=== PATIENT | female | born 1935 | race Caucasian/White ===

== ENCOUNTER → 2016-08-06 | Outpatient (CLI) | payer MEDICARE, BC ==
--- NOTE | 2016-08-07 10:14 | CR ---
EXAMINATION: Right shoulder HISTORY: Pain COMPARISON: None TECHNIQUE: 3 views FINDINGS: There is no acute osseous abnormality, dislocation, or fracture identified. Bone mineraliz ation and joint spaces appear normal. 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 IMPRESSION: No acute osseous abnormality.
== END ==
LOC: MW.CHORTHO 08:00
PROVIDERS: ATTEND Physician Assistant
DX: M25.511 Pain in right shoulder (principal); M75.41 Impingement syndrome of right shoulder
CPT/HCPCS: 20610; 73030-26-RT; 73030-RT; 99203; J1040

== ENCOUNTER → 2016-08-25 | Outpatient (CLI) | payer MEDICARE, BC | LOC: MW.CHPS 15:45 | PROVIDERS: ATTEND Plastic Surgery | DX: C44.311 Basal cell carcinoma of skin of nose (principal) | CPT/HCPCS: 17000; 99202 ==

== ENCOUNTER 2017-04-13 13:15 | Observation (INO) | payer MEDICARE, BC ==
[2017-04-13] MEDS ORDERED: Sodium Chloride 0.9% 2.5 ML Syringe FLUSH PRN ×2 (13:17→17:18)
[2017-04-13] MEDS ORDERED: Sodium Chloride 0.9% 10 ML Syringe FLUSH PRN ×2 (13:17→17:18)
--- NOTE | 2017-04-13 13:26 | EDM.PDOC ---
ED HPI GENERAL MEDICAL PROBLEM - General Chief Complaint: Cardiovascular Problem Stated Complaint: A-FIB Time Seen by Provider: 04/13/17 13:20 Source of Information: Reports: Patient History Limitations: Reports: No Limitations - History of Present Illness INITIAL COMMENTS - FREE TEXT/NARRATIVE: History of present illness: []Patient lives in [facility] at [place] and states that early this morning she started feeling her heart racing like she was in A. fib and it has been intermittent all day. Patient states her nurse gave her her meds and she has not missed any doses. She denies any chest pain or shortness of breath at this time and does not feel the symptoms on arrival to the ED. Review of systems: As per history of present illness and below otherwise all systems reviewed and negative. Past medical history: As per history of present illness and as reviewed below otherwise noncontributory. Surgical history: As per history of present illness and as reviewed below otherwise noncontributory. Social history: No reported history of drug or alcohol abuse. Family history: As per history of present illness and as reviewed below otherwise noncontributory. Physical exam: General: Well developed, well nourished in NAD HEENT: Atraumatic, normocephalic, pupils reactive, negative for conjunctival pallor or scleral icterus, mucous membranes moist, throat clear, neck supple, nontender, trachea midline. Lungs: Clear to auscultation, breath sounds equal bilaterally, chest nontender. Heart: S1S2, regular, negative for clicks, rubs, or JVD. Abdomen: Soft, nondistended, nontender. Negative for masses or hepatosplenomegaly. Negative for costovertebral tenderness. Pelvis: Stable nontender. Genitourinary: Deferred. Rectal: Deferred. Extremities: Atraumatic, negative for cords or calf pain. Neurovascular unremarkable. Neuro: Awake, alert, oriented. Cranial nerves II through XII unremarkable. Cerebellum unremarkable. Motor and sensory unremarkable throughout. Exam nonfocal. Diagnostics: []EKG shows a normal sinus rhythm, headache enzymes are negative, other labs are also negative chest x-ray normal Therapeutics: [] Impression: []Palpitations, history of paroxysmal A. 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 - Related Data Allergies Allergy/AdvReac Type Severity Reaction Status Date / Time codeine Allergy Nausea Verified 08/06/16 18:55 Home Meds: Home Meds Acetaminophen 1,000 mg PO Q6H PRN 02/04/16 [History] Aspirin 81 mg PO DAILY 02/04/16 [History] Carboxymethyl/Glycerin/Poly80 [Refresh Optive Advanced Drops] 1 drop EYEBOTH Q4H PRN 02/04/16 [History] Lisinopril 10 mg PO DAILY 02/04/16 [History] Multivitamin [Multivitamins] 1 tab PO DAILY 02/04/16 [History] Ranitidine HCl [Ranitidine] 150 mg PO BID 02/04/16 [History] atorvaSTATin [Lipitor] 40 mg PO DAILY 02/04/16 [History] Diltiazem [Cardizem CD] 120 mg PO DAILY #30 cap.cd 02/06/16 [Rx] Rivaroxaban [Xarelto] 20 mg PO DAILY 30 Days tablet 02/06/16 [Rx] Sertraline HCl 25 mg PO DAILY 08/06/16 [History] Acetaminophen/Chlorpheniramine [Coricidin HBP Cold & Flu] 2 tab PO Q6H PRN 08/07 [History] Dextromethorphn/Acetaminoph/CP [Coricidin HBP Flu] 2 tab PO Q6HR PRN 08/07/16 [ History] Erythromycin Base/Ethanol [Erythromycin 2% Gel] 1 applic EYEBOTH Q12H PRN [History] Past Medical History HEENT History: Reports: Impaired Vision Other HEENT History: Uses eyeglasses Cardiovascular History: Reports: Afib, Hypertension, Other (See Below) Other Cardiovascular History: Stroke 03/2014 Respiratory History: Reports: None Gastrointestinal History: Reports: Other (See Below) Other Gastrointestinal History: history of bowel resection for villous adenoma Genitourinary History: Reports: None 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 OB/BYN History: s/p hysterectomy Musculoskeletal History: Reports: Back Pain, Chronic Neurological History: Reports: CVA Other Neuro History: short term memory loss Psychiatric History: Reports: None Endocrine/Metabolic History: Reports: None Hematologic History: Reports: None Immunologic History: Reports: None Oncologic (Cancer) History: Reports: Other (See Below) Other Oncologic History: history of villous adenoma treated with endoscopic bowel resection Dermatologic History: Reports: None - Infectious Disease History Infectious Disease History: Reports: Chicken Pox, Measles, Mumps - Past Surgical History GI Surgical History: Reports: Other (See Below) Female Surgical History: Reports: Hysterectomy, Other (See Below) Male Surgical History: Reports: Other (See Below) Social & Family History - Family History Family Medical History: Noncontributory Cardiac: Reports: Hypertension OBGYN: Reports: Oncologic: Reports: Breast - Tobacco Use Smoking Status *Q: Never Smoker Second Hand Smoke Exposure: No - Caffeine Use Caffeine Use: Reports: Coffee, Other Other Caffeine Use: rarely - Alcohol Use Days Per Week of Alcohol Use: 0 - Recreational Drug Use Recreational Drug Use: No ED ROS GENERAL - Review of Systems Review Of Systems: See Below (See history of present illness) ED EXAM, GENERAL - Physical Exam Exam: See Below (See history of present illness) Course - Vital Signs Last Recorded V/S: Last Vital Signs Temp 35.9 C 04/13/17 13:37 Pulse 79 04/13/17 13:37 Resp 18 04/13/17 13:37 BP 129/62 04/13/17 13:37 Pulse Ox 98 04/13/17 13:37 - Orders/Labs/Meds Orders: Active Orders 24 hr Category Date Time Status EKG Documentation Completion [RC] STAT Care 04/13/17 13:17 Active Sodium Chloride 0.9% [Saline Flush] Med 04/13/17 13:17 Active 10 ml FLUSH ASDIRECTED PRN Sodium Chloride 0.9% [Saline Flush] Med 04/13/17 13:17 Active 2.5 ml FLUSH ASDIRECTED PRN Saline Lock Insert [OM.PC] Stat Oth 04/13/17 13:17 Ordered Medication Orders Sodium Chloride (Saline Flush) 10 ml FLUSH ASDIRECTED PRN PRN Reason: Keep Vein Open Sodium Chloride (Saline Flush) 2.5 ml FLUSH ASDIRECTED PRN PRN Reason: Keep Vein Open Labs: Laboratory Tests 04/13/17 04/13/17 Range/Units 13:32 13:32 WBC 10.29 (4.0-11.0) K/uL RBC 4.82 (4.30-5.90) M/uL Hgb 12.6 (12.0-16.0) g/dL Hct 39.5 (36.0-46.0) % MCV 82.0 (80.0-98.0) fL MCH 26.1 L (27.0-32.0) pg MCHC 31.9 (31.0-37.0) g/dL RDW Std Deviation 51.1 (28.0-62.0) fl RDW Coeff of Elle 17 H (11.0-15.0) % Plt Count 249 (150-400) K/uL MPV 10.20 (7.40-12.00) fL Neut % (Auto) 73.0 (48.0-80.0) % Lymph % (Auto) 16.5 (16.0-40.0) % Ford % (Auto) 8.9 (0.0-15.0) % Eos % (Auto) 1.2 (0.0-7.0) % Baso % (Auto) 0.4 (0.0-1.5) % Neut # (Auto) 7.5 H (1.4-5.7) K/uL Lymph # (Auto) 1.7 (0.6-2.4) K/uL Ford # (Auto) 0.9 H (0.0-0.8) K/uL Eos # (Auto) 0.1 (0.0-0.7) K/uL Baso # (Auto) 0.0 (0.0-0.1) K/uL Nucleated RBC % 0.0 /100WBC Nucleated RBCs # 0 K/uL Sodium 139 (136-146) mmol/L Potassium 4.0 (3.5-5.1) mmol/L Chloride 106 (98-110) mmol/L Carbon Dioxide 25 (21-31) mmol/L BUN 14 (6.0-23.0) mg/dL Creatinine 0.8 (0.6-1.5) mg/dL Est Cr Clr Drug Dosing TNP Estimated GFR (MDRD) > 60.0 ml/min Glucose 95 (60-110) mg/dL Calcium 9.7 (8.8-10.8) mg/dL Total Bilirubin 0.2 (0.1-1.5) mg/dL AST 19 (5-40) IU/L ALT 18 (8-54) IU/L Alkaline Phosphatase 48 (40-150) Troponin I < 0.10 (0.0-0.29) NG/ML Total Protein 7.1 (6.0-8.0) g/dL Albumin 3.8 (3.4-4.8) g/dL Globulin 3.3 (2.0-3.5) g/dL Albumin/Globulin Ratio 1.2 L (1.3-2.8) TSH 3rd Generation 0.98 (0.47-5.0) uIU/mL Meds: Medications Generic Name Dose Route Start Last Admin Trade Name Freq PRN Reason Stop Dose Admin Sodium Chloride 10 ml 04/13/17 13:17 Saline Flush FLUSH ASDIRECTED PRN Keep Vein Open Sodium Chloride 2.5 ml 04/13/17 13:17 Saline Flush FLUSH ASDIRECTED PRN Keep Vein Open Departure - Departure Time of Disposition: 14:36 Disposition: Home, Self-Care 01 Condition: Good Clinical Impression: Palpitations Referrals: Phu Mullins MD [Primary Care Provider] - Forms: ED Department Discharge Additional Instructions: The following information is given to patients seen in the emergency department who are being discharged to home. This information is to outline your options for follow-up care. We provide all patients seen in our emergency department with a follow-up referral. The need for follow-up, as well as the timing and circumstances, are variable depending upon the specifics of your emergency department visit. If you don't have a primary care physician on staff, we will provide you with a referral. We always advise you to contact your personal physician following an emergency department visit to inform them of the circumstance of the visit and for follow-up with them and/or the need for any referrals to a consulting specialist. The emergency department will also refer you to a specialist when appropriate. This referral assures that you have the opportunity for follow-up care with a specialist. All of these measure are taken in an effort to provide you with optimal care, which includes your follow-up. Under all circumstances we always encourage you to contact your private physician who remains a resource for coordinating your care. When calling for follow-up care, please make the office aware that this follow-up is from your recent emergency room visit. If for any reason you are refused follow-up, please contact the [facility] Emergency Department at and asked to speak to the emergency department charge nurse. Continue regular medicines, follow up with your primary care physician and/or return to ER if symptoms worsen or change [facility] [address] [place] [id number] - My Orders Last 24 Hours: My Active Orders 04/13/17 13:17 EKG Documentation Completion [RC] STAT Sodium Chloride 0.9% [Saline Flush] 10 ml FLUSH ASDIRECTED PRN Sodium Chloride 0.9% [Saline Flush] 2.5 ml FLUSH ASDIRECTED PRN Saline Lock Insert [OM.PC] Stat - Assessment/Plan Last 24 Hours: My Active Orders 04/13/17 13:17 EKG Documentation Completion [RC] STAT Sodium Chloride 0.9% [Saline Flush] 10 ml FLUSH ASDIRECTED PRN Sodium Chloride 0.9% [Saline Flush] 2.5 ml FLUSH ASDIRECTED PRN Saline Lock Insert [OM.PC] Stat
[2017-04-13 13:59] LABS: CHLORIDE,CL 106 mmol/L (98-110); SODIUM,NA 139 mmol/L (136-146)
--- NOTE | 2017-04-13 14:12 | CR ---
EXAMINATION: Portable chest radiograph. HISTORY: Shortness of breath. COMPARISON: 08/06/2016 FINDINGS: The trachea is midline. The cardiomediastinal silhouette is within normal limits. No pulmonary infilt rates, effusions or pneumothorax. Osseous structures appear unremarkable. IMPRESSION: Stable chest radiograph without definite acute cardiopulmonary finding.
[2017-04-13] MEDS ORDERED: Pneumococcal Polyvalent-23 Vaccine 0.5 ML SDV IM ONE (16:08)
[2017-04-13] MEDS ORDERED: Morphine 2 MG/ML Syringe IVPUSH PRN (17:18)
[2017-04-13] MEDS ORDERED: [UNRECOGNIZED DRUG - OTHER] PO PRN (17:22)
[2017-04-13] MEDS ORDERED: CHLORPHENIRAMINE PO PRN (17:22)
[2017-04-13] MEDS ORDERED: [UNRECOGNIZED DRUG - OTHER] PO PRN (17:22)
[2017-04-13] MEDS ORDERED: Acetaminophen 500 MG Tab PO PRN (17:22)
[2017-04-13] MEDS ORDERED: Erythromycin Base 0.5% Ophth Oint 1 GM Tube EYEBOTH PRN (17:22)
[2017-04-13] MEDS ORDERED: ACETAMINOPHEN PO PRN (17:22)
[2017-04-13] MEDS ORDERED: Carboxymethylcellulose Sodium 0.5% Ophth Soln 0.4 ML UD Box of 30 EYEBOTH PRN (17:22)
[2017-04-13] MEDS ORDERED: Aluminum Hydroxide/Magnesium Hydroxide/Simethicone Susp 30 ML Cup PO PRN (17:50)
--- NOTE | 2017-04-13 18:06 | PCM.HP ---
H&P History of Present Illness - General Date of Service: 04/13/17 Source of Information: Patient - History of Present Illness Initial Comments - Free Text/Narative: Patient 82 years old female with PMHx of atrial fibrillation presented to hospital today because while sitting in the chair she has 3-4 episodes of lightheadedness and chest tightness 4/10 intensity , localized in the middle of the chest. The nurse checked her pulse and was in 160 and her heart beats were irregular. Chest tightness lasted for about 10 min and she did not have any episodes sice she came to Er Onset of Symptoms: Reports: Today - Related Data Allergies/Adverse Reactions: Allergies Allergy/AdvReac Type Severity Reaction Status Date / Time codeine Allergy Nausea Verified 04/13/17 16:17 Home Medications: Home Meds Acetaminophen 1,000 mg PO Q6H PRN 02/04/16 [History] Aspirin 81 mg PO DAILY 02/04/16 [History] Carboxymethyl/Glycerin/Poly80 [Refresh Optive Advanced Drops] 1 drop EYEBOTH Q4H PRN 02/04/16 [History] Lisinopril 10 mg PO DAILY 02/04/16 [History] Multivitamin [Multivitamins] 1 tab PO DAILY 02/04/16 [History] Ranitidine HCl [Ranitidine] 150 mg PO BID 02/04/16 [History] atorvaSTATin [Lipitor] 40 mg PO DAILY 02/04/16 [History] Rivaroxaban [Xarelto] 20 mg PO DAILY 30 Days tablet 02/06/16 [Rx] Sertraline HCl 25 mg PO DAILY 08/06/16 [History] Acetaminophen/Chlorpheniramine [Coricidin HBP Cold & Flu] 2 tab PO Q6H PRN 08/07 [History] Dextromethorphn/Acetaminoph/CP [Coricidin HBP Flu] 2 tab PO Q6HR PRN 08/07/16 [ History] Erythromycin Base/Ethanol [Erythromycin 2% Gel] 1 applic EYEBOTH Q12H PRN [History] Diltiazem HCl [Diltiazem 24Hr Cd] 180 mg PO DAILY 04/13/17 [History] Past Medical History - Past Health History Medical/Surgical History: Denies Medical/Surgical History HEENT History: Reports: Impaired Vision Other HEENT History: Uses eyeglasses Cardiovascular History: Reports: Afib, Hypertension, Other (See Below) Other Cardiovascular History: Stroke 03/2014 Respiratory History: Reports: None Gastrointestinal History: Reports: Other (See Below) Other Gastrointestinal History: history of bowel resection for villous adenoma Genitourinary History: Reports: None 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 OB/BYN History: s/p hysterectomy Musculoskeletal History: Reports: Back Pain, Chronic Neurological History: Reports: CVA Other Neuro History: short term memory loss Psychiatric History: Reports: None Endocrine/Metabolic History: Reports: None Hematologic History: Reports: None Immunologic History: Reports: None Oncologic (Cancer) History: Reports: Other (See Below) Other Oncologic History: history of villous adenoma treated with endoscopic bowel resection Dermatologic History: Reports: None - Infectious Disease History Infectious Disease History: Reports: Chicken Pox, Measles, Mumps - Past Surgical History Head Surgeries/Procedures: Reports: None GI Surgical History: Reports: Other (See Below) Female Surgical History: Reports: Hysterectomy, Other (See Below) Social & Family History - Family History Family Medical History: Noncontributory Cardiac: Reports: Hypertension OBGYN: Reports: Oncologic: Reports: Breast - Tobacco Use Smoking Status *Q: Former Smoker Used Tobacco, but Quit: Yes Month Tobacco Last Used: quit many years ago Second Hand Smoke Exposure: No - Caffeine Use Caffeine Use: Reports: Coffee Other Caffeine Use: rarely - Alcohol Use Days Per Week of Alcohol Use: 0 - Recreational Drug Use Recreational Drug Use: No H&P Review of Systems - Review of Systems: Review Of Systems: See Below General: Reports: Diaphoresis HEENT: Reports: No Symptoms Pulmonary: Reports: No Symptoms Cardiovascular: Reports: Chest Pain, Lightheadedness Gastrointestinal: Reports: No Symptoms Genitourinary: Reports: No Symptoms Musculoskeletal: Reports: No Symptoms Skin: Reports: No Symptoms Psychiatric: Reports: No Symptoms Neurological: Reports: No Symptoms Hematologic/Lymphatic: Reports: No Symptoms Immunologic: Reports: No Symptoms Exam - Exam Exam: See Below - Vital Signs Vital Signs: Last Vital Signs Temp 97.8 F 04/13/17 16:01 Pulse 83 04/13/17 16:01 Resp 16 04/13/17 16:01 BP 151/68 H 04/13/17 16:01 Pulse Ox 96 04/13/17 16:01 Weight: 198 lb - Exam General: Alert, Oriented HEENT: Conjunctiva Clear Neck: Supple, Trachea Midline Lungs: Clear to Auscultation, Normal Respiratory Effort Cardiovascular: Regular Rate, Regular Rhythm, Normal S1, Normal S2 GI/Abdominal Exam: Normal Bowel Sounds, Soft, Non-Tender, No Organomegaly, No Distention, No Abnormal Bruit Extremities: Normal Inspection Skin: Warm, Dry Neuro Extensive - Mental Status: Alert, Oriented x3 - Patient Data Result Diagrams: 04/13/17 13:32 04/13/17 13:32 EKG INTERPRETATION EKG Date: 04/13/17 Rhythm: NSR *Q Meaningful Use (ADM) - VTE *Q VTE Criteria *Q: - Stroke *Q Stroke Criteria *Q: - AMI *Q AMI Criteria *Q: - Problem List (1) Chest pain SNOMED Code(s): 54369164 ICD Code: R07.9 - CHEST PAIN, UNSPECIFIED Status: Acute Current Visit: Yes (2) Lightheadedness SNOMED Code(s): 722303175 ICD Code: R42 - DIZZINESS AND GIDDINESS Status: Acute Current Visit: Yes (3) Arrhythmia SNOMED Code(s): 542394764 ICD Code: I49.9 - CARDIAC ARRHYTHMIA, UNSPECIFIED Status: Acute Current Visit: Yes (4) Hyperlipidemia SNOMED Code(s): 82744895 ICD Code: E78.5 - HYPERLIPIDEMIA, UNSPECIFIED Status: Acute Current Visit : Yes Problem List Initiated/Reviewed/Updated: Yes Orders Last 24hrs: Active Orders 24 hr Category Date Time Status Patient Status [ADT] Routine ADT 04/13/17 17:19 Active Antiembolic Devices [RC] PER UNIT ROUTINE Care 04/13/17 17:21 Active Bedrest Bathroom Privileges [RC] ASDIRECTED Care 04/13/17 17:18 Active Telemetry Monitoring [Cardiac Monitoring] [RC] . Care 04/13/17 17:40 Active DIRECTED VTE/DVT Education [RC] PER UNIT ROUTINE Care 04/13/17 17:19 Active Vital Signs [RC] Q4H Care 04/13/17 17:19 Active 2 Gram Sodium Diet [DIET] Diet 04/13/17 Dinner Active CBC W/O DIFF,HEMOGRAM [HEME] AM Lab 04/14/17 05:11 Ordered CBC W/O DIFF,HEMOGRAM [HEME] AM Lab 04/15/17 05:11 Ordered CBC W/O DIFF,HEMOGRAM [HEME] AM Lab 04/16/17 05:11 Ordered CBC W/O DIFF,HEMOGRAM [HEME] AM Lab 04/17/17 05:11 Ordered COMPREHENSIVE METABOLIC PN,CMP [CHEM] AM Lab 04/14/17 05:11 Ordered COMPREHENSIVE METABOLIC PN,CMP [CHEM] AM Lab 04/15/17 05:11 Ordered COMPREHENSIVE METABOLIC PN,CMP [CHEM] AM Lab 04/16/17 05:11 Ordered COMPREHENSIVE METABOLIC PN,CMP [CHEM] AM Lab 04/17/17 05:11 Ordered TROPONIN I [CHEM] Q6H Lab 04/13/17 22:00 Ordered TROPONIN I [CHEM] Q6H Lab 04/14/17 04:00 Ordered Acetaminophen [Tylenol Extra Strength] Med 04/13/17 17:22 Active 1,000 mg PO Q6H PRN Alum Hydrox/Mag Hydrox/Simeth [Mag-Al Plus] Med 04/13/17 17:50 Active 30 ml PO Q4H PRN Aspirin Med 04/14/17 09:00 Active 81 mg PO DAILY Carboxymethylcellulose Sodium [Refresh Plus 0.5%] Med 04/13/17 17:22 Active 1 each EYEBOTH Q4H PRN Diltiazem [Cardizem CD] Med 04/14/17 09:00 Active 180 mg PO DAILY Erythromycin Base [Erythromycin 0.5% Ophth Oint] Med 04/13/17 17:22 Active 1 gm EYEBOTH Q12H PRN Famotidine [Pepcid] Med 04/13/17 21:00 Active 20 mg PO BID Heparin Sodium Med 04/13/17 21:00 Active 5,000 units SUBCUT Q12HR Lisinopril [Prinivil] Med 04/14/17 09:00 Active 10 mg PO DAILY Morphine Med 04/13/17 17:18 Active 2 mg IVPUSH Q2H PRN Multivitamins w-Iron/Ca/FA/Min [Thera M Plus] Med 04/14/17 09:00 Active 1 tab PO DAILY Rivaroxaban [Xarelto] Med 04/14/17 09:00 Active 20 mg PO DAILY Sertraline [Zoloft] Med 04/14/17 09:00 Active 25 mg PO DAILY Sodium Chloride 0.9% [Saline Flush] Med 04/13/17 17:18 Active 10 ml FLUSH ASDIRECTED PRN Sodium Chloride 0.9% [Saline Flush] Med 04/13/17 17:18 Active 2.5 ml FLUSH ASDIRECTED PRN atorvaSTATin [Lipitor] Med 04/14/17 09:00 Active 40 mg PO DAILY Peripheral IV Insertion Adult [OM.PC] Routine Oth 04/13/17 17:18 Ordered Sequential Compression Device [OM.PC] Per Unit Routine Oth 04/13/17 17:20 Ordered Code Status [Resuscitation Status] Routine Resus Stat 04/13/17 17:38 Ordered Medication Orders Acetaminophen (Tylenol Extra Strength) 1,000 mg PO Q6H PRN PRN Reason: Pain Al Hydroxide/Mg Hydroxide (Mag-Al Plus) 30 ml PO Q4H PRN PRN Reason: Heartburn Artificial Tears (Refresh Plus 0.5%) 1 each EYEBOTH Q4H PRN PRN Reason: Dry Eyes Aspirin (Aspirin) 81 mg PO DAILY [facility] Atorvastatin Calcium (Lipitor) 40 mg PO DAILY [facility] Diltiazem HCl (Cardizem Cd) 180 mg PO DAILY [facility] Erythromycin (Erythromycin 0.5% Ophth Oint) 1 gm EYEBOTH Q12H PRN PRN Reason: Dry Eyes Famotidine (Pepcid) 20 mg PO BID [facility] Heparin Sodium (Porcine) (Heparin Sodium) 5,000 units SUBCUT Q12HR [facility] Lisinopril (Prinivil) 10 mg PO DAILY [facility] Morphine Sulfate (Morphine) 2 mg IVPUSH Q2H PRN PRN Reason: Pain (severe 7-10) Multivitamins/Minerals (Thera M Plus) 1 tab PO DAILY [facility] Rivaroxaban (Xarelto) 20 mg PO DAILY [facility] Sertraline HCl (Zoloft) 25 mg PO DAILY [facility] Sodium Chloride (Saline Flush) 10 ml FLUSH ASDIRECTED PRN PRN Reason: Keep Vein Open Sodium Chloride (Saline Flush) 2.5 ml FLUSH ASDIRECTED PRN PRN Reason: Keep Vein Open Sodium Chloride (Saline Flush) 10 ml FLUSH ASDIRECTED PRN PRN Reason: Keep Vein Open Sodium Chloride (Saline Flush) 2.5 ml FLUSH ASDIRECTED PRN PRN Reason: Keep Vein Open Assessment/Plan Comment:: A/p CP r/o acs arrhythmia HLP lightheadedness Paroxysmal a fib HLP Plan Will admit patient to telemetry , cardiac enzymes times 3 , aspirin 325 mg po daily , lipid profile in am , cardiac echo , carotid doppler , orthostatic Vs. 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 Cardiazem 180 mg po daily , atorvastatin as per reconciliation
[2017-04-13] MEDS: Famotidine 20 MG Tab PO SCH (20:53)
[2017-04-13] MEDS ORDERED: Heparin Sodium 5,000 Units/ML Vial SUBCUT SCH (21:00)
[2017-04-14 04:25] LABS: CHLORIDE,CL 109 mmol/L (98-110); SODIUM,NA 141 mmol/L (136-146)
[2017-04-14 08:49] VITALS: BP 138/54
[2017-04-14] MEDS: Famotidine 20 MG Tab PO SCH (08:49)
[2017-04-14] MEDS ORDERED: Aspirin 81 MG Tab.Chew PO SCH (09:00)
[2017-04-14] MEDS ORDERED: Lisinopril 10 MG Tab PO SCH (09:00)
[2017-04-14] MEDS ORDERED: Rivaroxaban 10 MG Tab PO SCH (09:00)
[2017-04-14] MEDS ORDERED: Diltiazem 180 MG Cap.CD PO SCH (09:00)
[2017-04-14] MEDS ORDERED: Sertraline 25 MG Tab PO SCH (09:00)
[2017-04-14] MEDS ORDERED: Multivitamins with Iron/Calcium/Folic Acid/Minerals Tab PO SCH (09:00)
[2017-04-14] MEDS ORDERED: atorvaSTATin 40 MG Tab PO SCH (09:00)
--- NOTE | 2017-04-14 09:14 | PCM.DCSUM1 ---
Discharge Summary - Hospital Course Brief History: This 82 year old female and [facility] resident with pmh of atrial fibrillation, CVA, HTN, dyslipidemia, anxiety and depression presented to hospital yesterdaywith complaints of chest tightness, palpitations, and lightheadedness. She reports while sitting in a chair she had 3-4 episodes of lightheadedness and chest tightness 4/10 intensity, localized in the middle of the chest. The [facility] nurse checked her pulse and noted it wsa 160 and irregular. Chest tightness lasted for about 10 min and she did not have any episodes sice she came to ED. In the ED labwork all WNL, troponin negative. EKG SR, no afib noted. She was admitted for chest pain rule out and lightheadedness. PCP Dr. Mullins. - Discharge Data Discharge Date: 04/14/17 Discharge Disposition: DC/Tfer to [facility] Condition: Good - Discharge Diagnosis/Problem(s) (1) Chest pain SNOMED Code(s): 61631783 ICD Code: R07.9 - CHEST PAIN, UNSPECIFIED Status: Acute Current Visit: Yes Qualifiers: Chest pain type: other chest pain Qualified Code(s): R07.89 - Other chest pain; R07.8 - Other chest pain (2) Lightheadedness SNOMED Code(s): 524345180 ICD Code: R42 - DIZZINESS AND GIDDINESS Status: Acute Current Visit: Yes (3) Palpitations SNOMED Code(s): 54733259 ICD Code: R00.2 - PALPITATIONS Status: Acute Current Visit: Yes (4) History of CVA (cerebrovascular accident) SNOMED Code(s): 328242647 ICD Code: Z86.73 - PRSNL HX OF TIA (TIA), AND CEREB INFRC W/O RESID DEFICITS Status: Chronic Current Visit: Yes (5) Anxiety SNOMED Code(s): 85697438 ICD Code: F41.9 - ANXIETY DISORDER, UNSPECIFIED Status: Chronic Current Visit: Yes (6) HTN (hypertension) SNOMED Code(s): 72736908 ICD Code: I10 - ESSENTIAL (PRIMARY) HYPERTENSION Status: Chronic Current Visit: Yes Qualifiers: Hypertension type: essential hypertension Qualified Code(s): I10 - Essential (primary) hypertension (7) Chronic anticoagulation SNOMED Code(s): 787186356 ICD Code: Z79.01 - SNF (CURRENT) USE OF ANTICOAGULANTS Status: Chronic Current Visit: Yes (8) Hyperlipidemia SNOMED Code(s): 06317924 ICD Code: E78.5 - HYPERLIPIDEMIA, UNSPECIFIED Status: Chronic Current Visit: Yes (9) Atrial fibrillation SNOMED Code(s): 33106063 ICD Code: I48.91 - UNSPECIFIED ATRIAL FIBRILLATION Status: Chronic Current Visit: No Qualifiers: Atrial fibrillation type: paroxysmal Qualified Code(s): I48.0 - Paroxysmal atrial fibrillation - Patient Instructions Diet: Heart Healthy Diet Activity: As Tolerated Showering/Bathing: May Shower Notify Provider of: Fever, Increased Pain, Swelling and Redness, Drainage, Nausea and/or Vomiting - Discharge Plan Home Medications: Home Meds Acetaminophen 1,000 mg PO Q6H PRN 02/04/16 [History] Aspirin 81 mg PO DAILY 02/04/16 [History] Carboxymethyl/Glycerin/Poly80 [Refresh Optive Advanced Drops] 1 drop EYEBOTH Q4H PRN 02/04/16 [History] Lisinopril 10 mg PO DAILY 02/04/16 [History] Multivitamin [Multivitamins] 1 tab PO DAILY 02/04/16 [History] Ranitidine HCl [Ranitidine] 150 mg PO BID 02/04/16 [History] atorvaSTATin [Lipitor] 40 mg PO DAILY 02/04/16 [History] Rivaroxaban [Xarelto] 20 mg PO DAILY 30 Days tablet 02/06/16 [Rx] Sertraline HCl 25 mg PO DAILY 08/06/16 [History] Acetaminophen/Chlorpheniramine [Coricidin HBP Cold & Flu] 2 tab PO Q6H PRN 08/07 [History] Dextromethorphn/Acetaminoph/CP [Coricidin HBP Flu] 2 tab PO Q6HR PRN 08/07/16 [ History] Erythromycin Base/Ethanol [Erythromycin 2% Gel] 1 applic EYEBOTH Q12H PRN [History] Diltiazem HCl [Diltiazem 24Hr Cd] 180 mg PO DAILY 04/13/17 [History] Patient Handouts: Chest Pain Observation Referrals: Phu Mullins MD [Primary Care Provider] - 04/21/17 10:15 am (follow in 1 week on next elio rounds) - Discharge Summary/Plan Comment DC Time >30 min.: No Discharge Summary/Plan Comment: Admission Diagnoses: Chest pain, r/o ACS Lightheadedness Palpitations Hx of CVA HTN Afib on chronic anticoagulation Anxiety Depression Discharge Diagnoses Chest pain- resolved, ACS ruled out Hx of CVA HTN Afib on chronic anticoagulation Anxiety Depression Nikky was admitted and monitored overnight, no afib noted and no further feelings of lightheadedness. She has slight lightheadedness upon getting up to bathroom, Orthostatics WNL. supine 137/64, sitting 147/59, and standing 134/63. Reports this lightheadedness happens sometimes when getting up, educated to take position changes slowly. No lightheadedness at rest. No further palpitations or chest pain. All troponins negative. Telemetry remained SR during her stay. She is very eager to be discharged back to [facility] this morning. She had ECHO and Carotid US ordered and are pending at discharge. She can follow with PCP regarding these results. She is to follow up with Dr. Phu Mullins in 1 week. She was encouraged to return to ED or clinic if concerns were to arise. - General Info Date of Service: 04/14/17 Admission Dx/Problem (Free Text: chest pain Subjective Update: Doing well this morning, asking to be discharged back to [place], "I am feeling fine now and I am exhausted. You can't get any sleep here." She denies chest pain and SOB. No lightheadedness at rest. Functional Status: Reports: Pain Controlled, Tolerating Diet, Ambulating, Urinating - Review of Systems General: Reports: No Symptoms. Denies: Fever Pulmonary: Reports: No Symptoms. Denies: Shortness of Breath, Cough, Sputum Cardiovascular: Reports: No Symptoms. Denies: Chest Pain, Palpitations, Edema, Lightheadedness Gastrointestinal: Reports: No Symptoms. Denies: Abdominal Pain, Nausea, Vomiting Neurological: Reports: No Symptoms. Denies: Confusion - Patient Data Vitals - Most Recent: Last Vital Signs Temp 97.1 F 04/14/17 08:00 Pulse 68 04/14/17 08:00 Resp 16 04/14/17 08:00 BP 138/54 L 04/14/17 08:49 Pulse Ox 95 04/14/17 08:00 Orthostatic Blood Pressure [ 134/63 Standing] Orthostatic Blood Pressure [ 147/59 Sitting] Orthostatic Blood Pressure [ 137/64 Supine] Weight - Most Recent: 89.811 kg I&O - Last 24 hours: Intake & Output 04/13/17 04/14/17 04/14/17 22:59 06:59 14:59 Intake Total 0 150 Output Total 100 525 Balance -100 -375 Lab Results - Last 24 hrs: Laboratory Results - last 24 hr 04/13/17 04/14/17 04/14/17 Range/Units 21:50 03:54 03:54 WBC 8.58 (4.0-11.0) K/uL RBC 4.35 (4.30-5.90) M/uL Hgb 11.1 L (12.0-16.0) g/dL Hct 35.3 L (36.0-46.0) % MCV 81.1 (80.0-98.0) fL MCH 25.5 L (27.0-32.0) pg MCHC 31.4 (31.0-37.0) g/dL RDW Std Deviation 50.9 (28.0-62.0) fl RDW Coeff of Elle 17 H (11.0-15.0) % Plt Count 219 (150-400) K/uL MPV 10.00 (7.40-12.00) fL Nucleated RBC % 0.0 /100WBC Nucleated RBCs # 0 K/uL Sodium 141 (136-146) mmol/L Potassium 4.1 (3.5-5.1) mmol/L Chloride 109 (98-110) mmol/L Carbon Dioxide 24 (21-31) mmol/L BUN 20 (6.0-23.0) mg/dL Creatinine 0.7 (0.6-1.5) mg/dL Est Cr Clr Drug Dosing 51.66 mL/min Estimated GFR (MDRD) > 60.0 ml/min Glucose 92 (60-110) mg/dL Calcium 9.1 (8.8-10.8) mg/dL Total Bilirubin 0.3 (0.1-1.5) mg/dL AST 16 (5-40) IU/L ALT 15 (8-54) IU/L Alkaline Phosphatase 40 (40-150) Troponin I < 0.10 (0.0-0.29) NG/ML Total Protein 5.9 L (6.0-8.0) g/dL Albumin 3.4 (3.4-4.8) g/dL Globulin 2.5 (2.0-3.5) g/dL Albumin/Globulin Ratio 1.4 (1.3-2.8) Triglycerides (10-190) mg/dL Cholesterol (131-240) mg/dL LDL Cholesterol, Calc (60-180) mg/dL VLDL Cholesterol (5-55) mg/dL HDL Cholesterol (40-80) mg/dL Cholesterol/HDL Ratio (3.3-6.0) 04/14/17 04/14/17 Range/Units 03:54 03:54 WBC (4.0-11.0) K/uL RBC (4.30-5.90) M/uL Hgb (12.0-16.0) g/dL Hct (36.0-46.0) % MCV (80.0-98.0) fL MCH (27.0-32.0) pg MCHC (31.0-37.0) g/dL RDW Std Deviation (28.0-62.0) fl RDW Coeff of Elle (11.0-15.0) % Plt Count (150-400) K/uL MPV (7.40-12.00) fL Nucleated RBC % /100WBC Nucleated RBCs # K/uL Sodium (136-146) mmol/L Potassium (3.5-5.1) mmol/L Chloride (98-110) mmol/L Carbon Dioxide (21-31) mmol/L BUN (6.0-23.0) mg/dL Creatinine (0.6-1.5) mg/dL Est Cr Clr Drug Dosing mL/min Estimated GFR (MDRD) ml/min Glucose (60-110) mg/dL Calcium (8.8-10.8) mg/dL Total Bilirubin (0.1-1.5) mg/dL AST (5-40) IU/L ALT (8-54) IU/L Alkaline Phosphatase (40-150) Troponin I < 0.10 (0.0-0.29) NG/ML Total Protein (6.0-8.0) g/dL Albumin (3.4-4.8) g/dL Globulin (2.0-3.5) g/dL Albumin/Globulin Ratio (1.3-2.8) Triglycerides 59 (10-190) mg/dL Cholesterol 176 (131-240) mg/dL LDL Cholesterol, Calc 97 (60-180) mg/dL VLDL Cholesterol 12 (5-55) mg/dL HDL Cholesterol 67 (40-80) mg/dL Cholesterol/HDL Ratio 2.6 L (3.3-6.0) Med Orders - Current: Current Medications Acetaminophen (Tylenol Extra Strength) 1,000 mg PO Q6H PRN PRN Reason: Pain Last Admin: 04/14/17 03:51 Dose: 1,000 mg Artificial Tears (Refresh Plus 0.5%) 1 each EYEBOTH Q4H PRN PRN Reason: Dry Eyes Aspirin (Aspirin) 81 mg PO DAILY [facility] Last Admin: 04/14/17 08:49 Dose: 81 mg Atorvastatin Calcium (Lipitor) 40 mg PO DAILY [facility] Last Admin: 04/14/17 08:49 Dose: 40 mg Diltiazem HCl (Cardizem Cd) 180 mg PO DAILY [facility] Last Admin: 04/14/17 08:50 Dose: 180 mg Erythromycin (Erythromycin 0.5% Ophth Oint) 1 gm EYEBOTH Q12H PRN PRN Reason: Dry Eyes Famotidine (Pepcid) 20 mg PO BID [facility] Last Admin: 04/14/17 08:49 Dose: 20 mg Lisinopril (Prinivil) 10 mg PO DAILY [facility] Last Admin: 04/14/17 08:49 Dose: 10 mg Morphine Sulfate (Morphine) 2 mg IVPUSH Q2H PRN PRN Reason: Pain (severe 7-10) Multivitamins/Minerals (Thera M Plus) 1 tab PO DAILY [facility] Last Admin: 04/14/17 08:49 Dose: 1 tab Rivaroxaban (Xarelto) 20 mg PO DAILY [facility] Last Admin: 04/14/17 08:49 Dose: 20 mg Sertraline HCl (Zoloft) 25 mg PO DAILY [facility] Last Admin: 04/14/17 08:49 Dose: 25 mg Sodium Chloride (Saline Flush) 10 ml FLUSH ASDIRECTED PRN PRN Reason: Keep Vein Open Sodium Chloride (Saline Flush) 2.5 ml FLUSH ASDIRECTED PRN PRN Reason: Keep Vein Open Sodium Chloride (Saline Flush) 10 ml FLUSH ASDIRECTED PRN PRN Reason: Keep Vein Open Sodium Chloride (Saline Flush) 2.5 ml FLUSH ASDIRECTED PRN PRN Reason: Keep Vein Open Discontinued Medications Al Hydroxide/Mg Hydroxide (Mag-Al Plus) 30 ml PO Q4H PRN PRN Reason: Heartburn Heparin Sodium (Porcine) (Heparin Sodium) 5,000 units SUBCUT Q12HR [facility] Pneumococcal Polyvalent Vaccine (Pneumovax 23) 0.5 ml IM .ONCE ONE Stop: 04/13/17 16:09 Last Admin: 04/13/17 16:42 Dose: Not Given - Exam General: Reports: Alert, Oriented, Cooperative, No Acute Distress Lungs: Reports: Clear to Auscultation, Normal Respiratory Effort Cardiovascular: Reports: Regular Rate, Regular Rhythm GI/Abdominal Exam: Normal Bowel Sounds, Soft, Non-Tender, No Organomegaly, No Distention, No Abnormal Bruit, No Mass, Pelvis Stable Extremities: Normal Inspection, Normal Range of Motion, Non-Tender, No Pedal Edema, Normal Capillary Refill Neurological: Reports: No New Focal Deficit Psy/Mental Status: Reports: Alert, Normal Affect, Normal Mood *Q Meaningful Use (DIS) - VTE *Q VTE Criteria *Q: - Stroke *Q Stroke Criteria *Q: - AMI *Q AMI Criteria *Q:
--- NOTE | 2017-04-14 11:49 | US ---
EXAMINATION: Carotid US with barahona scale and duplex imaging. HISTORY: Syncope FINDINGS: Ultrasound examination of bilateral cervical carotid arteries was performed using barahona scale and dupl ex imaging. Minimal scattered atheromatous changes noted without significant narrowing on grayscale imaging. Antegrade flow noted within the vertebrals. These are the peak velocities in cm per second (systole), right and left respectively, by a comma: CCA (common carotid artery) - 80, 103 ICA (internal carotid artery) - 84, 100 ECA (External carotid artery) - 69, 63 ICA/CCA systolic ratio Right - 1.1 Left - 1.1 IMPRESSION: No significant narrowing more elevated velocities noted within the carotid arteries bilaterally.
--- NOTE | 2017-04-16 17:20 | ECHO ---
The echocardiogram report can be see in this patient's EMR (electronic medical record) in the Report section. This report has also been scanned into PACS and can be see there. DANNIELLE
== END 2017-04-14 11:15 ==
LOC: MW.ED 13:15 → MW.MS 15:23
PROVIDERS: ADMIT Internal Medicine; ATTEND Internal Medicine
DX: I48.91 Unspecified atrial fibrillation (principal); R42 Dizziness and giddiness; R07.89 Other chest pain; I10 Essential (primary) hypertension; E78.5 Hyperlipidemia, unspecified; F41.9 Anxiety disorder, unspecified; F32.9 Major depressive disorder, single episode, unspecified; Z86.73 Personal history of transient ischemic attack (TIA), and cerebral infarction without residual deficits; Z79.01 Long term (current) use of anticoagulants; Z79.82 Long term (current) use of aspirin; Z79.899 Other long term (current) drug therapy; Z88.5 Allergy status to narcotic agent; Z90.49 Acquired absence of other specified parts of digestive tract; Z90.710 Acquired absence of both cervix and uterus; Z87.891 Personal history of nicotine dependence; Z85.3 Personal history of malignant neoplasm of breast
CPT/HCPCS: 36415; 71010; 80053; 80061; 84443; 84484; 85025; 85027; 93005; 93306; 93880; 99285; A9270; G0378

== ENCOUNTER 2017-07-31 10:45 | Observation (INO) | payer MEDICARE, BC ==
[2017-07-31] MEDS ORDERED: Sodium Chloride 0.9% 2.5 ML Syringe FLUSH PRN (10:50)
[2017-07-31] MEDS ORDERED: Sodium Chloride 0.9% 10 ML Syringe FLUSH PRN (10:50)
[2017-07-31] MEDS ORDERED: Aspirin 81 MG Tab.Chew PO ONE (10:50)
[2017-07-31] MEDS ORDERED: Albuterol/Ipratropium 3.0-0.5 MG/3 ML Neb Soln NEB ONE (10:53)
--- NOTE | 2017-07-31 10:53 | EDM.PDOC ---
ED HPI GENERAL MEDICAL PROBLEM - General Stated Complaint: IRREGULAR HEART BEAT Time Seen by Provider: 07/31/17 10:50 Source of Information: Reports: Patient History Limitations: Reports: No Limitations - History of Present Illness INITIAL COMMENTS - FREE TEXT/NARRATIVE: HISTORY AND PHYSICAL: History of present illness: Patient is an 82-year-old female who is brought to the emergency room with complaints of chest pain, fatigue and palpitations 2 days. She states she has had these symptoms intermittently since last night. Currently the pain is midsternal and does not radiate anywhere. Nothing makes the pain better or worse. She has also noticed a cough which started this morning. Patient is a resident of a assisted nursing facility, told staff that she has been having symptoms and they prompted her to come in to be evaluated. She denies any fever, chills, shortness of breath, abdominal pain, nausea, vomiting, diarrhea or constipation. Patient has a history of dizziness, hypertension, custodial use of anticoagulants due to cerebral infarction, high cholesterol, depression, anxiety , palpitations, atrial fibrillation and amnesia. Review of systems: As per history of present illness and below otherwise all systems reviewed and negative. Past medical history: As per history of present illness and as reviewed below otherwise noncontributory. Surgical history: As per history of present illness and as reviewed below otherwise noncontributory. Social history: No reported history of drug or alcohol abuse. Family history: As per history of present illness and as reviewed below otherwise noncontributory. Physical exam: General: HEENT: Atraumatic, normocephalic, pupils reactive, negative for conjunctival pallor or scleral icterus, mucous membranes moist, throat clear, neck supple, nontender, trachea midline. Lungs: Clear to auscultation, breath sounds equal bilaterally, chest nontender. Heart: S1S2, regular, negative for clicks, rubs, or JVD. Abdomen: Soft, nondistended, nontender. Negative for masses or hepatosplenomegaly. Negative for costovertebral tenderness. Pelvis: Stable nontender. Genitourinary: Deferred. Rectal: Deferred. Extremities: Atraumatic, negative for cords or calf pain. Neurovascular unremarkable. Neuro: Awake, alert, oriented. Cranial nerves II through XII unremarkable. Cerebellum unremarkable. Motor and sensory unremarkable throughout. Exam nonfocal. Lab work is all within normal limits. The chest x-ray shows no sign of pneumonia or infiltration. I encouraged and offered admission at this time. The patient would like to talk with her family members, who are at the bedside as she states "I feel well enough to go home". We did discuss the risks of going home AGAINST MEDICAL ADVICE, she states that she would like to review with her family and will get back to me. Vital signs are stable at this time. And she is pain-free. Patient is willing to stay for admission. Hospitalist paged and agreed to admit patient for observation admission with Telemetry. Diagnostics: CBC, CMP, troponin, EKG, PT/INR, chest x-ray Therapeutics: Aspirin, nitroglycerin, Duo neb Impression: Chest pain rule out [place] Plan: Admission for observation to Med/Surg with Telemetry. Definitive disposition and diagnosis as appropriate pending reevaluation and review of above. Duration: Day(s): Location: Reports: Chest Chest Pain Score (Numeric/FACES): 2 - Related Data Allergies Allergy/AdvReac Type Severity Reaction Status Date / Time codeine Allergy Nausea Verified 07/31/17 11:00 Home Meds: Home Meds Acetaminophen 1,000 mg PO Q6H PRN 02/04/16 [History] Aspirin 81 mg PO DAILY 02/04/16 [History] Carboxymethyl/Glycerin/Poly80 [Refresh Optive Advanced Drops] 1 drop EYEBOTH Q4H PRN 02/04/16 [History] Lisinopril 10 mg PO DAILY 02/04/16 [History] Multivitamin [Multivitamins] 1 tab PO DAILY 02/04/16 [History] Ranitidine HCl [Ranitidine] 150 mg PO BID 02/04/16 [History] atorvaSTATin [Lipitor] 40 mg PO DAILY 02/04/16 [History] Sertraline HCl 25 mg PO DAILY 08/06/16 [History] Acetaminophen/Chlorpheniramine [Coricidin HBP Cold & Flu] 2 tab PO Q6H PRN 08/07 [History] Dextromethorphn/Acetaminoph/CP [Coricidin HBP Flu] 2 tab PO Q6H PRN 08/07/16 [ History] Erythromycin Base/Ethanol [Erythromycin 2% Gel] 1 applic EYEBOTH Q12H PRN [History] Carboxymethyl/Gly/Poly80/Pf [Refresh Optive Advanced Drops] 1 drop EYEBOTH Q4H 07/31/17 [History] Diltiazem HCl [Cardizem] 60 mg PO .AT ONSET OF A-FIB PRN 07/31/17 [History] Diltiazem HCl [Diltiazem 24Hr Cd] 240 mg PO DAILY 07/31/17 [History] Magnesium Hydroxide [Milk of Magnesia] 30 ml PO Q24H PRN 07/31/17 [History] Polyvinyl Alcohol/Povidone [Refresh] 1 drop EYEBOTH QID 07/31/17 [History] Rivaroxaban [Xarelto] 20 mg PO DAILY 07/31/17 [History] prednisoLONE Acetate [Prednisolone Acetate] 1 drop EYEBOTH BID 07/31/17 [History ] Past Medical History - Past Health History Medical/Surgical History: Denies Medical/Surgical History HEENT History: Reports: Impaired Vision Other HEENT History: Uses eyeglasses Cardiovascular History: Reports: Afib, Hypertension, Other (See Below) Other Cardiovascular History: Stroke 03/2014 Respiratory History: Reports: None Gastrointestinal History: Reports: Other (See Below) Other Gastrointestinal History: history of bowel resection for villous adenoma Genitourinary History: Reports: None PATTERN HANGER History: Reports: Other OB/BYN History: s/p hysterectomy Musculoskeletal History: Reports: Back Pain, Chronic Neurological History: Reports: CVA Other Neuro History: short term memory loss Psychiatric History: Reports: None Endocrine/Metabolic History: Reports: None Hematologic History: Reports: None Immunologic History: Reports: None Oncologic (Cancer) History: Reports: Other (See Below) Other Oncologic History: history of villous adenoma treated with endoscopic bowel resection Dermatologic History: Reports: None - Infectious Disease History Infectious Disease History: Reports: Chicken Pox, Measles, Mumps - Past Surgical History Head Surgeries/Procedures: Reports: None GI Surgical History: Reports: Other (See Below) Female Surgical History: Reports: Hysterectomy, Other (See Below) Social & Family History - Family History Family Medical History: Noncontributory Cardiac: Reports: Hypertension OBGYN: Reports: Oncologic: Reports: Breast - Tobacco Use Smoking Status *Q: Former Smoker Used Tobacco, but Quit: Yes Month/Year Tobacco Last Used: quit many years ago Second Hand Smoke Exposure: No - Caffeine Use Caffeine Use: Reports: Coffee Other Caffeine Use: rarely - Alcohol Use Days Per Week of Alcohol Use: 0 - Recreational Drug Use Recreational Drug Use: No ED ROS GENERAL - Review of Systems Review Of Systems: ROS reveals no pertinent complaints other than HPI. ED EXAM, GENERAL - Physical Exam Exam: See Below (See dictation) EKG INTERPRETATION EKG Date: 07/31/17 Time: 10:51 Rhythm: NSR Rate (Beats/Min): 71 Course - Vital Signs Last Recorded V/S: Last Vital Signs Temp 96.0 F 08/01/17 08:00 Pulse 82 08/01/17 08:36 Resp 14 08/01/17 08:00 BP 127/66 08/01/17 08:37 Pulse Ox 95 08/01/17 08:00 - Orders/Labs/Meds Labs: Laboratory Tests 07/31/17 07/31/17 07/31/17 Range/Units 11:15 11:15 11:15 WBC 7.06 (4.0-11.0) K/uL RBC 4.35 (4.30-5.90) M/uL Hgb 10.6 L (12.0-16.0) g/dL Hct 33.8 L (36.0-46.0) % MCV 77.7 L (80.0-98.0) fL MCH 24.4 L (27.0-32.0) pg MCHC 31.4 (31.0-37.0) g/dL RDW Std Deviation 44.9 (28.0-62.0) fl RDW Coeff of Elle 16 H (11.0-15.0) % Plt Count 305 (150-400) K/uL MPV 9.80 (7.40-12.00) fL Neut % (Auto) 64.5 (48.0-80.0) % Lymph % (Auto) 22.0 (16.0-40.0) % [place] % (Auto) 10.8 (0.0-15.0) % Eos % (Auto) 2.1 (0.0-7.0) % Baso % (Auto) 0.6 (0.0-1.5) % Neut # (Auto) 4.6 (1.4-5.7) K/uL Lymph # (Auto) 1.6 (0.6-2.4) K/uL [place] # (Auto) 0.8 (0.0-0.8) K/uL Eos # (Auto) 0.2 (0.0-0.7) K/uL Baso # (Auto) 0.0 (0.0-0.1) K/uL Nucleated RBC % 0.0 /100WBC Nucleated RBCs # 0 K/uL INR 1.00 Sodium 140 (136-145) mmol/L Potassium 3.9 (3.5-5.1) mmol/L Chloride 107 (98-107) mmol/L Carbon Dioxide 26.4 (21.0-32.0) mmol/L BUN 16 (7.0-18.0) mg/dL Creatinine 0.9 (0.6-1.0) mg/dL Est Cr Clr Drug Dosing 40.18 mL/min Estimated GFR (MDRD) 59.7 ml/min Glucose 121 H (74-106) mg/dL Calcium 9.3 (8.5-10.1) mg/dL Magnesium (1.5-2.0) mg/dL Total Bilirubin 0.2 (0.2-1.0) mg/dL AST 19 (15-37) IU/L ALT 16 (14-63) IU/L Alkaline Phosphatase 48 (46-116) U/L Troponin I < 0.050 (0.000-0.056) ng/mL Total Protein 6.7 (6.4-8.2) g/dL Albumin 3.1 L (3.4-5.0) g/dL Globulin 3.6 H (2.0-3.5) g/dL Albumin/Globulin Ratio 0.9 L (1.3-2.8) //18 Range/Units 11:15 WBC (4.0-11.0) K/uL RBC (4.30-5.90) M/uL Hgb (12.0-16.0) g/dL Hct (36.0-46.0) % MCV (80.0-98.0) fL MCH (27.0-32.0) pg MCHC (31.0-37.0) g/dL RDW Std Deviation (28.0-62.0) fl RDW Coeff of Elle (11.0-15.0) % Plt Count (150-400) K/uL MPV (7.40-12.00) fL Neut % (Auto) (48.0-80.0) % Lymph % (Auto) (16.0-40.0) % [place] % (Auto) (0.0-15.0) % Eos % (Auto) (0.0-7.0) % Baso % (Auto) (0.0-1.5) % Neut # (Auto) (1.4-5.7) K/uL Lymph # (Auto) (0.6-2.4) K/uL [place] # (Auto) (0.0-0.8) K/uL Eos # (Auto) (0.0-0.7) K/uL Baso # (Auto) (0.0-0.1) K/uL Nucleated RBC % /100WBC Nucleated RBCs # K/uL INR Sodium (136-145) mmol/L Potassium (3.5-5.1) mmol/L Chloride (98-107) mmol/L Carbon Dioxide (21.0-32.0) mmol/L BUN (7.0-18.0) mg/dL Creatinine (0.6-1.0) mg/dL Est Cr Clr Drug Dosing mL/min Estimated GFR (MDRD) ml/min Glucose (74-106) mg/dL Calcium (8.5-10.1) mg/dL Magnesium 1.4 L (1.5-2.0) mg/dL Total Bilirubin (0.2-1.0) mg/dL AST (15-37) IU/L ALT (14-63) IU/L Alkaline Phosphatase (46-116) U/L Troponin I (0.000-0.056) ng/mL Total Protein (6.4-8.2) g/dL Albumin (3.4-5.0) g/dL Globulin (2.0-3.5) g/dL Albumin/Globulin Ratio (1.3-2.8) Meds: Medications Discontinued Medications Generic Name Dose Route Start Last Admin Trade Name Freq PRN Reason Stop Dose Admin Acetaminophen 650 mg 07/31/17 13:51 Tylenol PO Q4H PRN Pain (Mild 1-3)/fever Albuterol/Ipratropium 3 ml 07/31/17 10:53 07/31/17 11:19 Duoneb 3.0-0.5 Mg/3 Ml NEB 07/31/17 10:54 3 ml ONETIME ONE Administration Artificial Tears 1 each 07/31/17 14:00 08/01/17 11:16 Refresh Plus 0.5% EYEBOTH 1 drop Q4H CARLOS Administration Artificial Tears 1 each 07/31/17 13:56 Refresh Plus 0.5% EYEBOTH Q4H PRN Dry Eyes Aspirin 324 mg 07/31/17 10:50 07/31/17 12:00 Aspirin PO 07/31/17 10:51 324 mg ONETIME ONE Administration Aspirin 81 mg 08/01/17 09:00 08/01/17 08:37 Aspirin PO 81 mg DAILY [facility] Administration Atorvastatin Calcium 40 mg 08/01/17 09:00 08/01/17 08:37 Lipitor PO 40 mg DAILY [facility] Administration Diltiazem HCl 240 mg 08/01/17 09:00 08/01/17 08:36 Cardizem Cd PO 240 mg DAILY [facility] Administration Diltiazem HCl 60 mg 07/31/17 13:56 Cardizem PO .AT ONSET OF A-FIB PRN AFIB Magnesium Sulfate 4 gm/ Premix 100 mls @ 50 mls/hr 07/31/17 14:39 07/31/17 15 :09 IV 07/31/17 16:38 50 mls/hr ONETIME ONE Administration Lisinopril 10 mg 08/01/17 09:00 08/01/17 08:37 Prinivil PO 10 mg DAILY [facility] Administration Magnesium Hydroxide 30 ml 07/31/17 13:56 Milk Of Magnesia PO Q24H PRN Constipation Morphine Sulfate 2 mg 07/31/17 13:51 Morphine IVPUSH Q2H PRN Pain (severe 7-10) Nitroglycerin 0.4 mg 07/31/17 11:03 Nitrostat SL Q5M PRN Chest Pain Ondansetron HCl 4 mg 07/31/17 13:51 Zofran Odt PO Q4H PRN nausea, able to take PO Ondansetron HCl 4 mg 07/31/17 13:51 Zofran IVPUSH Q4H PRN Nausea Prednisolone 1% 1 each 07/31/17 21:00 08/01/17 08:44 EYEBOTH Not Given BID [facility] Rivaroxaban 20 mg 08/01/17 17:30 Xarelto PO DAILY@1730 [facility] Sertraline HCl 25 mg 08/01/17 09:00 08/01/17 08:37 Zoloft PO 25 mg DAILY [facility] Administration Sodium Chloride 10 ml 07/31/17 10:50 Saline Flush FLUSH ASDIRECTED PRN Keep Vein Open Sodium Chloride 2.5 ml 07/31/17 10:50 Saline Flush FLUSH ASDIRECTED PRN Keep Vein Open Departure - Departure Time of Disposition: 13:00 Disposition: Refer to Observation Clinical Impression: Chest pain, rule out acute myocardial infarction
[2017-07-31] MEDS ORDERED: Nitroglycerin 0.4 MG Tab.SL SL PRN (11:03)
[2017-07-31 11:50] LABS: CHLORIDE,CL 107 mmol/L (98-107); SODIUM,NA 140 mmol/L (136-145)
[2017-07-31] MEDS ORDERED: Ondansetron 4 MG Tab.DIS PO PRN (13:51)
[2017-07-31] MEDS ORDERED: Ondansetron 4 MG/2 ML SDV IVPUSH PRN (13:51)
[2017-07-31] MEDS ORDERED: Morphine 2 MG/ML Syringe IVPUSH PRN (13:51)
[2017-07-31] MEDS ORDERED: Acetaminophen 325 MG Tab PO PRN (13:51)
[2017-07-31] MEDS ORDERED: Magnesium Hydroxide 400 MG/5 ML Susp 30 ML Cup PO PRN (13:56)
[2017-07-31] MEDS ORDERED: Diltiazem IR 60 MG Tab PO PRN (13:56)
[2017-07-31] MEDS ORDERED: Carboxymethylcellulose Sodium 0.5% Ophth Soln 0.4 ML UD Box of 30 EYEBOTH PRN (13:56)
--- NOTE | 2017-07-31 13:59 | PCM.HP ---
H&P History of Present Illness - General Date of Service: 07/31/17 Admit Problem/Dx: Admission Diagnosis/Problem Admission Diagnosis/Problem Chest pain, rule out acute myocardial infarction Source of Information: Patient, Family History Limitations: Reports: No Limitations - History of Present Illness Initial Comments - Free Text/Narative: 82-year-old [facility] female presenting to emergency department with chief complaint of chest pain 5 hours with past medical history of A. fib on Xarelto, CVA, hypertension, hyperlipidemia, GERD, and depression. Patient states that approximately 3 AM this morning she woke up with some substernal chest pain without radiation. Pain was "achy" she did have some associated nausea and shortness of breath. She denies any diaphoresis. She states that the pain eventually went away on its own at approximately 8 AM. She had been given Cardizem by nursing staff when further questioned. She felt like her heart was racing as well. She does have a history of A. fib and is on Xarelto. She reports that she was at the [employer] dancing last night and did not go to bed until midnight and had been feeling well previously. Patient reports a cough without production patient denies any fever, chills, abdominal pain, current nausea, vomiting, diarrhea, constipation, leg pain, leg swelling, shortness of breath, syncopal episodes, or focal neurologic deficits. Emergency room: CBC, INR, CMP, chest x-ray were all unremarkable. Troponin negative at 11:15, EKG showed no signs acute ischemia. Patient was given nitroglycerin sublingual 1. Patient admitted for atypical chest pain. Chest Pain Score (Numeric/FACES): 2 - Related Data Allergies/Adverse Reactions: Allergies Allergy/AdvReac Type Severity Reaction Status Date / Time codeine Allergy Nausea Verified 07/31/17 11:00 Home Medications: Home Meds Acetaminophen 1,000 mg PO Q6H PRN 02/04/16 [History] Aspirin 81 mg PO DAILY 02/04/16 [History] Carboxymethyl/Glycerin/Poly80 [Refresh Optive Advanced Drops] 1 drop EYEBOTH Q4H PRN 02/04/16 [History] Lisinopril 10 mg PO DAILY 02/04/16 [History] Multivitamin [Multivitamins] 1 tab PO DAILY 02/04/16 [History] Ranitidine HCl [Ranitidine] 150 mg PO BID 02/04/16 [History] atorvaSTATin [Lipitor] 40 mg PO DAILY 02/04/16 [History] Sertraline HCl 25 mg PO DAILY 08/06/16 [History] Acetaminophen/Chlorpheniramine [Coricidin HBP Cold & Flu] 2 tab PO Q6H PRN 08/07 [History] Dextromethorphn/Acetaminoph/CP [Coricidin HBP Flu] 2 tab PO Q6H PRN 08/07/16 [ History] Erythromycin Base/Ethanol [Erythromycin 2% Gel] 1 applic EYEBOTH Q12H PRN [History] Carboxymethyl/Gly/Poly80/Pf [Refresh Optive Advanced Drops] 1 drop EYEBOTH Q4H 07/31/17 [History] Diltiazem HCl [Cardizem] 60 mg PO .AT ONSET OF A-FIB PRN 07/31/17 [History] Diltiazem HCl [Diltiazem 24Hr Cd] 240 mg PO DAILY 07/31/17 [History] Magnesium Hydroxide [Milk of Magnesia] 30 ml PO Q24H PRN 07/31/17 [History] Polyvinyl Alcohol/Povidone [Refresh] 1 drop EYEBOTH QID 07/31/17 [History] Rivaroxaban [Xarelto] 20 mg PO DAILY 07/31/17 [History] prednisoLONE Acetate [Prednisolone Acetate] 1 drop EYEBOTH BID 07/31/17 [History ] Past Medical History - Past Health History Medical/Surgical History: Denies Medical/Surgical History HEENT History: Reports: Impaired Vision Other HEENT History: Uses eyeglasses Cardiovascular History: Reports: Afib, Hypertension, Other (See Below) Other Cardiovascular History: Stroke 03/2014 Respiratory History: Reports: None Gastrointestinal History: Reports: Other (See Below) Other Gastrointestinal History: history of bowel resection for villous adenoma Genitourinary History: Reports: None [employer] History: Reports: Other OB/BYN History: s/p hysterectomy Musculoskeletal History: Reports: Back Pain, Chronic Neurological History: Reports: CVA Other Neuro History: short term memory loss Psychiatric History: Reports: None Endocrine/Metabolic History: Reports: None Hematologic History: Reports: None Immunologic History: Reports: None Oncologic (Cancer) History: Reports: Other (See Below) Other Oncologic History: history of villous adenoma treated with endoscopic bowel resection Dermatologic History: Reports: None - Infectious Disease History Infectious Disease History: Reports: Chicken Pox, Measles, Mumps - Past Surgical History Head Surgeries/Procedures: Reports: None GI Surgical History: Reports: Other (See Below) Female Surgical History: Reports: Hysterectomy, Other (See Below) Social & Family History - Family History Family Medical History: Noncontributory Cardiac: Reports: Hypertension OBGYN: Reports: Oncologic: Reports: Breast - Tobacco Use Smoking Status *Q: Former Smoker Used Tobacco, but Quit: Yes Month/Year Tobacco Last Used: quit many years ago Second Hand Smoke Exposure: No - Caffeine Use Caffeine Use: Reports: Coffee Other Caffeine Use: rarely - Alcohol Use Days Per Week of Alcohol Use: 0 - Recreational Drug Use Recreational Drug Use: No H&P Review of Systems - Review of Systems: Review Of Systems: See Below General: Denies: Fever, Chills, Weakness, Fatigue HEENT: Denies: Headaches, Sore Throat Pulmonary: Reports: Cough. Denies: Shortness of Breath, Wheezing, Sputum Cardiovascular: Denies: Chest Pain, Palpitations, Edema Gastrointestinal: Denies: Abdominal Pain, Black Stool, Bloody Stool, Diarrhea, Nausea, Vomiting Genitourinary: Denies: Dysuria, Hematuria Musculoskeletal: Denies: Neck Pain, Leg Pain Skin: Denies: Cyanosis Psychiatric: Denies: Confusion Neurological: Denies: Confusion, Dizziness, Headache Hematologic/Lymphatic: Denies: Anemia Immunologic: Denies: Anaphylaxis Exam - Exam Exam: See Below - Vital Signs Vital Signs: Last Vital Signs Temp 97.1 F 07/31/17 10:59 Pulse 87 07/31/17 12:40 Resp 18 07/31/17 12:40 BP 145/61 H 07/31/17 12:40 Pulse Ox 94 L 07/31/17 12:40 Weight: 90.2 kg - Exam Quality Assessment: DVT Prophylaxis General: Alert, Oriented, Cooperative HEENT: Conjunctiva Clear, EACs Clear, EOMI, Hearing Intact, Mucosa Moist & Anthon , Nares Patent, Normal Nasal Septum, Posterior Pharynx Clear, PERRLA Neck: Supple, Trachea Midline, 2 Lungs: Clear to Auscultation, Normal Respiratory Effort Cardiovascular: Regular Rate, Regular Rhythm, Normal S1, Normal S2 GI/Abdominal Exam: Normal Bowel Sounds, Soft, Non-Tender, No Organomegaly, No Distention (Female) Exam: Deferred Rectal (Female) Exam: Deferred Back Exam: Normal Inspection Extremities: Normal Inspection, Non-Tender, No Pedal Edema, Normal Capillary Refill Peripheral Pulses: 2+: Radial (L), Radial (R), Posterior Tibial (L), Posterior Tibial (R), Dorsalis Pedis (L), Dorsalis Pedis (R) Skin: Warm, Dry, Intact Neurological: Cranial Nerves Intact Neuro Extensive - Mental Status: Alert, Oriented x3, Normal Mood/Affect, Normal Cognition Neuro Extensive - Motor, Sensory, Reflexes: CN II-XII Intact Psychiatric: Alert, Normal Affect, Normal Mood - Patient Data Result Diagrams: 07/31/17 11:15 07/31/17 11:15 *Q Meaningful Use (ADM) - VTE *Q VTE Criteria *Q: - Stroke *Q Stroke Criteria *Q: - AMI *Q AMI Criteria *Q: - Problem List (1) Atypical chest pain SNOMED Code(s): 051283081 ICD Code: R07.89 - OTHER CHEST PAIN Status: Acute Priority: High Current Visit: Yes (2) Atrial fibrillation SNOMED Code(s): 50234866 ICD Code: I48.91 - UNSPECIFIED ATRIAL FIBRILLATION Status: Chronic Priority: Medium Current Visit: Yes Qualifiers: Atrial fibrillation type: paroxysmal Qualified Code(s): I48.0 - Paroxysmal atrial fibrillation (3) Chronic anticoagulation SNOMED Code(s): 139337323 ICD Code: Z79.01 - DETENTION (CURRENT) USE OF ANTICOAGULANTS Status: Chronic Priority: Medium Current Visit: Yes (4) HTN (hypertension) SNOMED Code(s): 56302643 ICD Code: I10 - ESSENTIAL (PRIMARY) HYPERTENSION Status: Chronic Priority : Medium Current Visit: Yes Qualifiers: Hypertension type: essential hypertension Qualified Code(s): I10 - Essential (primary) hypertension (5) History of CVA (cerebrovascular accident) SNOMED Code(s): 523595369 ICD Code: Z86.73 - PRSNL HX OF TIA (TIA), AND CEREB INFRC W/O RESID DEFICITS Status: Chronic Priority: Medium Current Visit: Yes (6) Hyperlipidemia SNOMED Code(s): 25886652 ICD Code: E78.5 - HYPERLIPIDEMIA, UNSPECIFIED Status: Chronic Priority: Medium Current Visit: Yes Qualifiers: Hyperlipidemia type: unspecified Qualified Code(s): E78.5 - Hyperlipidemia , unspecified Problem List Initiated/Reviewed/Updated: Yes Orders Last 24hrs: Active Orders 24 hr Category Date Time Status Patient Status [ADT] Routine ADT 07/31/17 13:51 Ordered Antiembolic Devices [RC] PER UNIT ROUTINE Care 07/31/17 13:52 Ordered Oxygen Therapy [RC] PRN Care 07/31/17 13:51 Ordered Telemetry Monitoring [Cardiac Monitoring] [RC] . Care 07/31/17 13:55 Ordered DIRECTED Up With Assistance [RC] ASDIRECTED Care 07/31/17 13:51 Ordered VTE/DVT Education [RC] PER UNIT ROUTINE Care 07/31/17 13:51 Ordered Vital Signs [RC] Q4H Care 07/31/17 13:51 Ordered Heart Healthy Diet [DIET] Diet 07/31/17 Lunch Ordered BASIC METABOLIC PANEL,BMP [CHEM] AM Lab 08/01/17 05:11 Ordered CBC WITH AUTO DIFF [HEME] AM Lab 08/01/17 05:11 Ordered CBC WITH AUTO DIFF [HEME] AM Lab 08/02/17 05:11 Ordered CBC WITH AUTO DIFF [HEME] AM Lab 08/03/17 05:11 Ordered MAGNESIUM [CHEM] AM Lab 08/01/17 05:11 Ordered MAGNESIUM [CHEM] Stat Lab 07/31/17 13:51 Ordered TROPONIN I [CHEM] Q6H Lab 07/31/17 17:00 Ordered Acetaminophen [Tylenol] Med 07/31/17 13:51 Ordered 650 mg PO Q4H PRN Aspirin Med 08/01/17 09:00 Ordered 81 mg PO DAILY Carboxymethyl/Gly/Poly80/Pf [Refresh Optive Advanced Med 07/31/17 14:00 Ordered Drops] 1 drop EYEBOTH Q4H Carboxymethyl/Glycerin/Poly80 [Refresh Optive Advanced Med 07/31/17 13:56 Ordered Drops] 1 drop EYEBOTH Q4H PRN Diltiazem HCl Med 08/01/17 09:00 Ordered 240 mg PO DAILY Diltiazem IR [Cardizem] Med 07/31/17 13:56 Ordered 60 mg PO .AT ONSET OF A-FIB PRN Heparin Sodium Med 07/31/17 14:00 Ordered 5,000 units SUBCUT Q12H Lisinopril [Prinivil] Med 08/01/17 09:00 Ordered 10 mg PO DAILY Magnesium Hydroxide [Milk of Magnesia] Med 07/31/17 13:56 Ordered 30 ml PO Q24H PRN Morphine Med 07/31/17 13:51 Ordered 2 mg IVPUSH Q2H PRN Ondansetron [Zofran ODT] Med 07/31/17 13:51 Ordered 4 mg PO Q4H PRN Ondansetron [Zofran] Med 07/31/17 13:51 Ordered 4 mg IVPUSH Q4H PRN Rivaroxaban [Xarelto] Med 08/01/17 09:00 Ordered 20 mg PO DAILY Sertraline [Zoloft] Med 08/01/17 09:00 Ordered 25 mg PO DAILY atorvaSTATin [Lipitor] Med 08/01/17 09:00 Ordered 40 mg PO DAILY prednisoLONE Acetate [Pred Forte 1% Ophth Susp] Med 07/31/17 21:00 Ordered 1 drop EYEBOTH BID Sequential Compression Device [OM.PC] Per Unit Routine Oth 07/31/17 13:52 Ordered Resuscitation Status Routine Resus Stat 07/31/17 13:51 Ordered Medication Orders Acetaminophen (Tylenol) 650 mg PO Q4H PRN PRN Reason: Pain (Mild 1-3)/fever Heparin Sodium (Porcine) (Heparin Sodium) 5,000 units SUBCUT Q12H CARLOS Morphine Sulfate (Morphine) 2 mg IVPUSH Q2H PRN PRN Reason: Pain (severe 7-10) Stop: 08/01/17 13:53 Nitroglycerin (Nitrostat) 0.4 mg SL Q5M PRN PRN Reason: Chest Pain Ondansetron HCl (Zofran Odt) 4 mg PO Q4H PRN PRN Reason: nausea, able to take PO Ondansetron HCl (Zofran) 4 mg IVPUSH Q4H PRN PRN Reason: Nausea Sodium Chloride (Saline Flush) 10 ml FLUSH ASDIRECTED PRN PRN Reason: Keep Vein Open Sodium Chloride (Saline Flush) 2.5 ml FLUSH ASDIRECTED PRN PRN Reason: Keep Vein Open Assessment/Plan Comment:: 82-year-old female admitted 07/03/17 for atypical chest pain with past medical history of A. fib on Xarelto, CVA, hypertension, hyperlipidemia, GERD, and depression. Atypical chest pain: Patient placed on telemetry, will trend troponins, patient does state that she does not want any procedural intervention only medical. She is DNR/DNI. She did admit to some heart racing so I'm wondering if this chest pain is associated with her paroxysmal A. fib. Pain did go away after given Cardizem at [place] home. She is in NSR at this moment in the ED. I did get a mag which was low at 1.4. Replaced and will recheck. Goal greater than 2. Hypertension/hyperlipidemia: Currently controlled will resume home meds GERD: Currently controlled resume home meds Depression: Currently controlled resume home meds. VTE proph: SCD on Xarelto. Dispo: 1-2 days pending.
[2017-07-31] MEDS ORDERED: Heparin Sodium 5,000 Units/ML Vial SUBCUT SCH (14:00)
[2017-07-31] MEDS: Carboxymethylcellulose Sodium 0.5% Ophth Soln 0.4 ML UD Box of 30 EYEBOTH SCH ×3 (14:38→23:12)
[2017-07-31] MEDS ORDERED: Magnesium Sulfate/Water 4 GM in Premix Bag 1 BAG IV ONE (14:39)
[2017-07-31] MEDS: PREDNISOLONE 1% EYEBOTH SCH (23:11)
[2017-08-01] MEDS: Carboxymethylcellulose Sodium 0.5% Ophth Soln 0.4 ML UD Box of 30 EYEBOTH SCH ×3 (02:12→11:16)
[2017-08-01 06:42] LABS: CHLORIDE,CL 107 mmol/L (98-107); SODIUM,NA 141 mmol/L (136-145)
--- NOTE | 2017-08-01 07:18 | PCM.DCSUM1 ---
Discharge Summary - Hospital Course HPI Initial Comments: 82-year-old [facility] female admitted 07/31/17 for atypical chest pain with past medical history of A. fib on Xarelto, CVA, hypertension, hyperlipidemia, GERD, and depression. Brief History: Patient stated that approximately 3 AM on morning of admission she woke up with some substernal chest pain without radiation. Pain was "achy" she did have some associated nausea and shortness of breath. She denied any diaphoresis. She stated that the pain eventually went away on its own at approximately 8 AM. She had been given Cardizem by nursing staff when further questioned. She felt like her heart was racing as well. She does have a history of A. fib and is on Xarelto. She reported that she was at the [employer] dancing the previous night and did not go to bed until midnight and had been feeling well previously. Patient reported a cough without production patient denied any fever, chills, abdominal pain, current nausea, vomiting, diarrhea, constipation , leg pain, leg swelling, shortness of breath, syncopal episodes, or focal neurologic deficits. Emergency room: CBC, INR, CMP, chest x-ray were all unremarkable. Troponin negative at 11:15, EKG showed no signs acute ischemia. Patient was given nitroglycerin sublingual 1. Patient was admitted for atypical chest pain. - Discharge Data Discharge Date: 08/01/17 Discharge Disposition: Home, Self-Care 01 Condition: Good - Discharge Diagnosis/Problem(s) (1) Atypical chest pain SNOMED Code(s): 764779829 ICD Code: R07.89 - OTHER CHEST PAIN Status: Resolved Priority: High (2) Atrial fibrillation SNOMED Code(s): 53211346 ICD Code: I48.91 - UNSPECIFIED ATRIAL FIBRILLATION Status: Chronic Priority: Medium Qualifiers: Atrial fibrillation type: paroxysmal Qualified Code(s): I48.0 - Paroxysmal atrial fibrillation (3) Chronic anticoagulation SNOMED Code(s): 519033027 ICD Code: Z79.01 - [employer] (CURRENT) USE OF ANTICOAGULANTS Status: Chronic Priority: Medium (4) HTN (hypertension) SNOMED Code(s): 20691476 ICD Code: I10 - ESSENTIAL (PRIMARY) HYPERTENSION Status: Chronic Priority : Medium Qualifiers: Hypertension type: essential hypertension Qualified Code(s): I10 - Essential (primary) hypertension (5) History of CVA (cerebrovascular accident) SNOMED Code(s): 310402410 ICD Code: Z86.73 - PRSNL HX OF TIA (TIA), AND CEREB INFRC W/O RESID DEFICITS Status: Chronic Priority: Medium (6) Hyperlipidemia SNOMED Code(s): 65430821 ICD Code: E78.5 - HYPERLIPIDEMIA, UNSPECIFIED Status: Chronic Priority: Medium Qualifiers: Hyperlipidemia type: unspecified Qualified Code(s): E78.5 - Hyperlipidemia , unspecified - Patient Instructions Diet: Heart Healthy Diet Activity: Rest and Relax Today Driving: Do Not Drive Showering/Bathing: May Shower Notify Provider of: Fever, Increased Pain, Nausea and/or Vomiting - Discharge Plan Home Medications: Home Meds Acetaminophen 1,000 mg PO Q6H PRN 02/04/16 [History] Aspirin 81 mg PO DAILY 02/04/16 [History] Carboxymethyl/Glycerin/Poly80 [Refresh Optive Advanced Drops] 1 drop EYEBOTH Q4H PRN 02/04/16 [History] Lisinopril 10 mg PO DAILY 02/04/16 [History] Multivitamin [Multivitamins] 1 tab PO DAILY 02/04/16 [History] Ranitidine HCl [Ranitidine] 150 mg PO BID 02/04/16 [History] atorvaSTATin [Lipitor] 40 mg PO DAILY 02/04/16 [History] Sertraline HCl 25 mg PO DAILY 08/06/16 [History] Acetaminophen/Chlorpheniramine [Coricidin HBP Cold & Flu] 2 tab PO Q6H PRN 08/07 [History] Dextromethorphn/Acetaminoph/CP [Coricidin HBP Flu] 2 tab PO Q6H PRN 08/07/16 [ History] Erythromycin Base/Ethanol [Erythromycin 2% Gel] 1 applic EYEBOTH Q12H PRN [History] Carboxymethyl/Gly/Poly80/Pf [Refresh Optive Advanced Drops] 1 drop EYEBOTH Q4H 07/31/17 [History] Diltiazem HCl [Cardizem] 60 mg PO .AT ONSET OF A-FIB PRN 07/31/17 [History] Diltiazem HCl [Diltiazem 24Hr Cd] 240 mg PO DAILY 07/31/17 [History] Magnesium Hydroxide [Milk of Magnesia] 30 ml PO Q24H PRN 07/31/17 [History] Polyvinyl Alcohol/Povidone [Refresh] 1 drop EYEBOTH QID 07/31/17 [History] Rivaroxaban [Xarelto] 20 mg PO DAILY 07/31/17 [History] prednisoLONE Acetate [Prednisolone Acetate] 1 drop EYEBOTH BID 07/31/17 [History ] Patient Handouts: Nonspecific Chest Pain, [id number] Referrals: Phu Mullins MD [Primary Care Provider] - (Please call [facility] to schedule an appointment 1 week from now. ) - Discharge Summary/Plan Comment DC Time >30 min.: Yes Discharge Summary/Plan Comment: 82-year-old [facility] female admitted 07/31/17 for atypical chest pain with past medical history of A. fib on Xarelto, CVA, hypertension, hyperlipidemia, GERD, and depression. Patient stated that approximately 3 AM on morning of admission she woke up with some substernal chest pain without radiation. Pain was "achy" she did have some associated nausea and shortness of breath. She denied any diaphoresis. She stated that the pain eventually went away on its own at approximately 8 AM. She had been given Cardizem by nursing staff when further questioned. She felt like her heart was racing as well. She does have a history of A. fib and is on Xarelto. She reported that she was at the [employer] dancing the previous night and did not go to bed until midnight and had been feeling well previously. Patient reported a cough without production patient denied any fever, chills, abdominal pain, current nausea, vomiting, diarrhea, constipation, leg pain, leg swelling, shortness of breath, syncopal episodes, or focal neurologic deficits. Emergency room: CBC, INR, CMP, chest x-ray were all unremarkable. Troponin negative at 11:15, EKG showed no signs acute ischemia. Patient was given nitroglycerin sublingual 1. Patient was admitted for atypical chest pain. Serial troponins were negative and the patient had no further episodes of chest pain while in patient. She was observed on telemetry with no significant changes noted in her rythm. After conversating with patient she most likely had an episode of a-fib resulting in her perceived chest pain. Her magnesium level was low normal and was replaced while she was inpatient with goal >2.0 secondary to her history of a-fib. She was discharged in good condition with insturctions to return to follow-up with her PCP, Dr. Mullins and return to the emergency department if she had any new or worsening symptoms. - General Info Date of Service: 08/01/17 Admission Dx/Problem (Free Text: Admission Diagnosis/Problem Admission Diagnosis/Problem Chest pain, rule out acute myocardial infarction Subjective Update: Doing well. No return of chest pain. Denies any chest pain, palpitations, shortness, syncopal episodes, focal neurologic deficits. Does wish to be discharged today. Functional Status: Reports: Pain Controlled, Tolerating Diet, Ambulating, Urinating - Review of Systems General: Denies: Fever, Weakness, Fatigue HEENT: Denies: Headaches, Visual Changes Pulmonary: Denies: Shortness of Breath, Hemoptysis Cardiovascular: Denies: Chest Pain, Palpitations, Edema Gastrointestinal: Denies: Abdominal Pain, Diarrhea, Nausea, Vomiting Genitourinary: Denies: Dysuria, Hematuria Musculoskeletal: Denies: Neck Pain, Leg Pain Skin: Denies: Cyanosis Neurological: Denies: Confusion, Dizziness, Headache Psychiatric: Denies: Confusion - Patient Data Vitals - Most Recent: Last Vital Signs Temp 97.8 F 08/01/17 03:51 Pulse 69 08/01/17 03:51 Resp 17 08/01/17 03:51 BP 153/65 H 08/01/17 03:51 Pulse Ox 95 08/01/17 03:51 Weight - Most Recent: 90.2 kg I&O - Last 24 hours: Intake & Output 07/31/17 08/01/17 08/01/17 22:59 06:59 14:59 Intake Total 340 Output Total 620 Balance 340 -620 Lab Results - Last 24 hrs: Laboratory Results - last 24 hr 07/31/17 07/31/17 08/01/17 Range/Units 17:05 22:53 05:30 WBC 7.51 (4.0-11.0) K/uL RBC 4.18 L (4.30-5.90) M/uL Hgb 10.0 L (12.0-16.0) g/dL Hct 32.3 L (36.0-46.0) % MCV 77.3 L (80.0-98.0) fL MCH 23.9 L (27.0-32.0) pg MCHC 31.0 (31.0-37.0) g/dL RDW Std Deviation 45.0 (28.0-62.0) fl RDW Coeff of Elle 16 H (11.0-15.0) % Plt Count 322 (150-400) K/uL MPV 10.10 (7.40-12.00) fL Neut % (Auto) 62.6 (48.0-80.0) % Lymph % (Auto) 24.4 (16.0-40.0) % [place] % (Auto) 9.5 (0.0-15.0) % Eos % (Auto) 2.8 (0.0-7.0) % Baso % (Auto) 0.7 (0.0-1.5) % Neut # (Auto) 4.7 (1.4-5.7) K/uL Lymph # (Auto) 1.8 (0.6-2.4) K/uL [place] # (Auto) 0.7 (0.0-0.8) K/uL Eos # (Auto) 0.2 (0.0-0.7) K/uL Baso # (Auto) 0.1 (0.0-0.1) K/uL Nucleated RBC % 0.0 /100WBC Nucleated RBCs # 0 K/uL Sodium (136-145) mmol/L Potassium (3.5-5.1) mmol/L Chloride (98-107) mmol/L Carbon Dioxide (21.0-32.0) mmol/L BUN (7.0-18.0) mg/dL Creatinine (0.6-1.0) mg/dL Est Cr Clr Drug Dosing mL/min Estimated GFR (MDRD) ml/min Glucose (74-106) mg/dL Calcium (8.5-10.1) mg/dL Magnesium (1.5-2.0) mg/dL Troponin I < 0.050 < 0.050 (0.000-0.056) ng/mL 08/01/17 Range/Units 05:30 WBC (4.0-11.0) K/uL RBC (4.30-5.90) M/uL Hgb (12.0-16.0) g/dL Hct (36.0-46.0) % MCV (80.0-98.0) fL MCH (27.0-32.0) pg MCHC (31.0-37.0) g/dL RDW Std Deviation (28.0-62.0) fl RDW Coeff of Elle (11.0-15.0) % Plt Count (150-400) K/uL MPV (7.40-12.00) fL Neut % (Auto) (48.0-80.0) % Lymph % (Auto) (16.0-40.0) % [place] % (Auto) (0.0-15.0) % Eos % (Auto) (0.0-7.0) % Baso % (Auto) (0.0-1.5) % Neut # (Auto) (1.4-5.7) K/uL Lymph # (Auto) (0.6-2.4) K/uL [place] # (Auto) (0.0-0.8) K/uL Eos # (Auto) (0.0-0.7) K/uL Baso # (Auto) (0.0-0.1) K/uL Nucleated RBC % /100WBC Nucleated RBCs # K/uL Sodium 141 (136-145) mmol/L Potassium 4.0 (3.5-5.1) mmol/L Chloride 107 (98-107) mmol/L Carbon Dioxide 27.2 (21.0-32.0) mmol/L BUN 16 (7.0-18.0) mg/dL Creatinine 0.8 (0.6-1.0) mg/dL Est Cr Clr Drug Dosing 45.20 mL/min Estimated GFR (MDRD) > 60.0 ml/min Glucose 87 (74-106) mg/dL Calcium 8.8 (8.5-10.1) mg/dL Magnesium 1.8 (1.5-2.0) mg/dL Troponin I (0.000-0.056) ng/mL Med Orders - Current: Current Medications Acetaminophen (Tylenol) 650 mg PO Q4H PRN PRN Reason: Pain (Mild 1-3)/fever Artificial Tears (Refresh Plus 0.5%) 1 each EYEBOTH Q4H [facility] Last Admin: 08/01/17 02:12 Dose: Not Given Artificial Tears (Refresh Plus 0.5%) 1 each EYEBOTH Q4H PRN PRN Reason: Dry Eyes Aspirin (Aspirin) 81 mg PO DAILY [facility] [place] Atorvastatin Calcium (Lipitor) 40 mg PO DAILY [facility] [place] Diltiazem HCl (Cardizem Cd) 240 mg PO DAILY [facility] Diltiazem HCl (Cardizem) 60 mg PO .AT ONSET OF A-FIB PRN PRN Reason: AFIB Lisinopril (Prinivil) 10 mg PO DAILY [facility] [place] Magnesium Hydroxide (Milk Of Magnesia) 30 ml PO Q24H PRN PRN Reason: Constipation Morphine Sulfate (Morphine) 2 mg IVPUSH Q2H PRN PRN Reason: Pain (severe 7-10) Nitroglycerin (Nitrostat) 0.4 mg SL Q5M PRN PRN Reason: Chest Pain Ondansetron HCl (Zofran Odt) 4 mg PO Q4H PRN PRN Reason: nausea, able to take PO Ondansetron HCl (Zofran) 4 mg IVPUSH Q4H PRN PRN Reason: Nausea Prednisolone 1% 1 each EYEBOTH BID [facility] Last Admin: 07/31/17 23:11 Dose: Not Given Rivaroxaban (Xarelto) 20 mg PO DAILY@1730 [facility] [place] Sertraline HCl (Zoloft) 25 mg PO DAILY [facility] [place] Sodium Chloride (Saline Flush) 10 ml FLUSH ASDIRECTED PRN PRN Reason: Keep Vein Open Sodium Chloride (Saline Flush) 2.5 ml FLUSH ASDIRECTED PRN PRN Reason: Keep Vein Open Discontinued Medications Albuterol/Ipratropium (Duoneb 3.0-0.5 Mg/3 Ml) 3 ml NEB ONETIME ONE Stop: 07/31/17 10:54 Last Admin: 07/31/17 11:19 Dose: 3 ml Aspirin (Aspirin) 324 mg PO ONETIME ONE Stop: 07/31/17 10:51 Last Admin: 07/31/17 12:00 Dose: 324 mg Magnesium Sulfate 4 gm/ Premix 100 mls @ 50 mls/hr IV ONETIME ONE Stop: 07/31/17 16:38 Last Admin: 07/31/17 15:09 Dose: 50 mls/hr - Exam Quality Assessment: Reports: DVT Prophylaxis General: Reports: Alert, Oriented, Cooperative, No Acute Distress HEENT: Reports: Pupils Equal, Pupils Reactive, EOMI, Mucous Membr. Moist/[place] Neck: Reports: Supple, Trachea Midline, No JVD Lungs: Reports: Clear to Auscultation, Normal Respiratory Effort Cardiovascular: Reports: Regular Rate, Regular Rhythm, No Murmurs GI/Abdominal Exam: Normal Bowel Sounds, Soft, Non-Tender, No Organomegaly, No Distention (Female) Exam: Deferred Rectal (Female) Exam: Deferred Back Exam: Reports: Normal Inspection, Full Range of Motion Extremities: Normal Inspection, Non-Tender, No Pedal Edema, Normal Capillary Refill Skin: Reports: Warm, Dry, Intact Neurological: Reports: No New Focal Deficit Psy/Mental Status: Reports: Alert, Normal Affect, Normal Mood *Q Meaningful Use (DIS) - VTE *Q VTE Criteria *Q: - Stroke *Q Stroke Criteria *Q: - AMI *Q AMI Criteria *Q:
[2017-08-01 08:13] VITALS: BP 127/66
[2017-08-01] MEDS: PREDNISOLONE 1% EYEBOTH SCH (08:44)
[2017-08-01] MEDS ORDERED: atorvaSTATin 40 MG Tab PO SCH (09:00)
[2017-08-01] MEDS ORDERED: Aspirin 81 MG Tab.Chew PO SCH (09:00)
[2017-08-01] MEDS ORDERED: Lisinopril 10 MG Tab PO SCH (09:00)
[2017-08-01] MEDS ORDERED: Sertraline 25 MG Tab PO SCH (09:00)
[2017-08-01] MEDS ORDERED: Diltiazem 120 MG Cap.CD PO SCH (09:00)
[2017-08-01] MEDS ORDERED: Rivaroxaban 10 MG Tab PO SCH (17:30)
--- NOTE | 2017-08-02 15:31 | CR ---
EXAM DATE: 07/31/17 PATIENT'S AGE: 82 Patient: JOSE STEIN Facility: [place], [place] Site . Site : [id number] Study: XRay Chest [id number]/17/2018 11:44:24 AM Ordering Physician: Doctor Cervantes Final Report: HISTORY: Chest pain. FINDINGS: Single AP view of the chest is provided. Comparison is made to previous study dated 08/06/2016. Again noted are diminished lung volumes with an eventration of the right hemidiaphragm without change. No new airspace opacity is noted to suggest pneumonia. No findings for mass lesion, pleural effusion or pneumothorax. Cardiac silhouette size is unchanged. IMPRESSION: Stable examination. No findings for new airspace consolidation, pneumothorax or mass. Dictated by Anam Llamas MD @ Jul 31 2017 11:57AM (Electronic Signature) Report Signed by Proxy. DANNIELLE
== END 2017-08-01 12:45 | disposition home or self-care (01) ==
LOC: MW.ED 10:45 → MW.MS 12:40
PROVIDERS: ADMIT Family Medicine; ATTEND Family Medicine
DX: R07.89 Other chest pain (principal); I48.0 Paroxysmal atrial fibrillation; I10 Essential (primary) hypertension; E78.5 Hyperlipidemia, unspecified; K21.9 Gastro-esophageal reflux disease without esophagitis; F32.9 Major depressive disorder, single episode, unspecified; Z79.01 Long term (current) use of anticoagulants; Z86.73 Personal history of transient ischemic attack (TIA), and cerebral infarction without residual deficits; Z79.82 Long term (current) use of aspirin; Z79.899 Other long term (current) drug therapy; Z88.8 Allergy status to other drugs, medicaments and biological substances; Z87.891 Personal history of nicotine dependence
CPT/HCPCS: 36415; 71045; 80048; 80053; 83735; 84484; 85025; 85610; 93005; 94640; 99285; A9270; J3475; 99284

== ENCOUNTER 2019-12-10 12:03 | Emergency (ER) | payer MEDICARE, BC ==
[2019-12-10] MEDS ORDERED: Sodium Chloride 0.9% 2.5 ML Syringe FLUSH PRN (12:10)
[2019-12-10] MEDS ORDERED: Sodium Chloride 0.9% 10 ML Syringe FLUSH PRN (12:10)
--- NOTE | 2019-12-10 12:13 | EDM.PDOC ---
ED HPI GENERAL MEDICAL PROBLEM - General Stated Complaint: BLEEDING FROM ANUS Time Seen by Provider: 12/10/19 12:05 Source of Information: Reports: Patient, Alf Records, Old Records History Limitations: Reports: No Limitations - History of Present Illness INITIAL COMMENTS - FREE TEXT/NARRATIVE: This is an 84-year-old female with a past medical history of atrial fibrillation on rivaroxaban (and aspirin), CVA, depression, hyperlipidemia presenting with rectal bleeding. She presents from [facility] with reports of abdominal pain and 4 episodes of passing blood clots per rectum earlier this morning. Patient states that she began experiencing bilateral lower abdominal pain around 4:00 this morning while she was trying to sleep. She described as "aching", waxing and waning but constant, and nonradiating. Nothing makes the pain better or worse. Staff noted that the patient had 4 small episodes of maroon-colored stool at the half-way. Patient denies any history of prior GI bleed, hemoptysis, epistaxis, hematuria. abdomen Pain Score (Numeric/FACES): 2 - Related Data Allergies Allergy/AdvReac Type Severity Reaction Status Date / Time codeine Allergy Nausea Verified 12/10/19 12:28 Home Meds: Home Meds Acetaminophen 1,000 mg PO Q6H PRN 02/04/16 [History] Aspirin 81 mg PO DAILY 02/04/16 [History] Carboxymethyl/Glycerin/Poly80 [Refresh Optive Advanced Drops] 1 drop EYEBOTH Q4H PRN 02/04/16 [History] Lisinopril 10 mg PO DAILY 02/04/16 [History] Multivitamin [Multivitamins] 1 tab PO DAILY 02/04/16 [History] Ranitidine HCl [Ranitidine] 150 mg PO BID 02/04/16 [History] atorvaSTATin [Lipitor] 40 mg PO DAILY 02/04/16 [History] Sertraline HCl 25 mg PO DAILY 08/06/16 [History] Acetaminophen/Chlorpheniramine [Coricidin HBP Cold & Flu] 2 tab PO Q6H PRN 08/07/16 [History] Dextromethorphn/Acetaminoph/CP [Coricidin HBP Flu] 2 tab PO Q6H PRN 08/07/16 [History] Erythromycin Base/Ethanol [Erythromycin 2% Gel] 1 applic EYEBOTH Q12H PRN 08/07/16 [History] Carboxymethyl/Gly/Poly80/Pf [Refresh Optive Advanced Drops] 1 drop EYEBOTH Q4H 07/31/17 [History] Diltiazem HCl [Diltiazem 24Hr Cd] 240 mg PO DAILY 07/31/17 [History] Magnesium Hydroxide [Milk of Magnesia] 30 ml PO Q24H PRN 07/31/17 [History] Polyvinyl Alcohol/Povidone [Refresh] 1 drop EYEBOTH QID 07/31/17 [History] Rivaroxaban [Xarelto] 20 mg PO DAILY 07/31/17 [History] dilTIAZem HCL [Cardizem] 60 mg PO .AT ONSET OF A-FIB PRN 07/31/17 [History] prednisoLONE Acetate [Prednisolone Acetate] 1 drop EYEBOTH BID 07/31/17 [History] Acetaminophen [Acetaminophen Extra Strength] 500 - 1,000 mg PO Q6H PRN #30 tablet 12/10/19 [Rx] Amoxicillin/Potassium Clav [Augmentin 875-125 Tablet] 1 each PO BID 10 Days #20 tablet 12/10/19 [Rx] Past Medical History - Past Health History Medical/Surgical History: Denies Medical/Surgical History HEENT History: Reports: Impaired Vision Other HEENT History: Uses eyeglasses Cardiovascular History: Reports: Afib, Hypertension, Other (See Below) Other Cardiovascular History: Stroke 03/2014 Respiratory History: Reports: None Gastrointestinal History: Reports: Other (See Below) Other Gastrointestinal History: history of bowel resection for villous adenoma Genitourinary History: Reports: None 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: Reports: Other ORGAN PIPE 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: s/p hysterectomy Musculoskeletal History: Reports: Back Pain, Chronic Neurological History: Reports: CVA Other Neuro History: short term memory loss Psychiatric History: Reports: None Endocrine/Metabolic History: Reports: None Hematologic History: Reports: None Immunologic History: Reports: None Oncologic (Cancer) History: Reports: Other (See Below) Other Oncologic History: history of villous adenoma treated with endoscopic bowel resection Dermatologic History: Reports: None - Infectious Disease History Infectious Disease History: Reports: Chicken Pox, Measles, Mumps - Past Surgical History Head Surgeries/Procedures: Reports: None GI Surgical History: Reports: Other (See Below) Female Surgical History: Reports: Hysterectomy, Other (See Below) Social & Family History - Family History Family Medical History: Noncontributory Cardiac: Reports: Hypertension OBGYN: Reports: Oncologic: Reports: Breast - Caffeine Use Caffeine Use: Reports: Coffee Other Caffeine Use: rarely ED ROS GENERAL - Review of Systems Review Of Systems: See Below Constitutional: Denies: Fever, Chills HEENT: Denies: Throat Pain Respiratory: Denies: Shortness of Breath, Hemoptysis Cardiovascular: Denies: Chest Pain GI/Abdominal: Reports: Abdominal Pain, Bloody Stool. Denies: Black Stool, Hematemesis, Hematochezia, Melena, Nausea, Vomiting : Denies: Flank Pain, Hematuria Musculoskeletal: Denies: Back Pain Skin: Denies: Rash Neurological: Denies: Headache ED EXAM, GI/ABD - Physical Exam Exam: See Below Text/Narrative:: Vital signs reviewed. Nursing notes reviewed. Constitutional: Awake, alert, non-distressed. Head: Normocephalic, atraumatic. Eyes: EOMI, conjunctiva normal, no discharge, no scleral icterus. Ears, Nose, Throat: External ears and nose normal, moist oral mucosa. Cardiovascular: 2+ radial pulse, capillary refill less than 2 seconds. Pulmonary: normal work of breathing, no accessory muscle use. Abdomen/GI: Obese, soft, nontender, nondistended, no guarding or rigidity, no masses. : Soft, maroon-colored blood-streaked stool, external hemorrhoids present Musculoskeletal: No deformities. Integumentary: Appropriate color for ethnicity, warm, dry, no pallor or jaundice, no rash. Neurologic: Alert, answering questions appropriately, normal speech, no facial droop, moving all extremities well. Psychiatric: Appropriate mood and affect, normal thought process. Rectal (Female) Exam: Other (Maroon stool on COREY (chaperoned)) Course - Vital Signs Text/Narrative:: Patient hemodynamically stable, afebrile, well-appearing, looks nontoxic. Differential diagnosis includes but is not limited to: hemorrhoids (external vs internal vs thrombosed), anal fissure, rectal abscess, proctitis, upper GI bleed, lower GI bleed, malignancy, anemia, and many others. CBC shows mild leukocytosis, normal hemoglobin and platelet count. INR is normal. Creatinine is mildly elevated at 1.1. Electrolytes look okay. LFTs look normal. CT abdomen/pelvis demonstrated uncomplicated sigmoid diverticulitis. Digital rectal exam did reveal a small amount of soft maroon stool but no significant ongoing bleeding. Pain seems well controlled at this point. There is no evidence of a complication on CT imaging, the patient is afebrile and looks nontoxic. Small amount of rectal bleeding is likely due to diverticulitis. We will plan to treat with oral antibiotics and oral acetaminophen. I counseled the patient to closely follow-up with her primary doctor the next couple of days to ensure that the volume of rectal bleeding is tapering off and that her pain is well controlled. I counseled her that if her rectal bleeding continues, she may need referral to gastroenterology for consideration of colonoscopy, her primary physician can facilitate this. She was given strict return precautions for any increasing bleeding, worsening pain, fever, or any other new or concerning symptoms. Plan: Patient is stable to discharge home with outpatient primary care follow- up. Strict emergency department return precautions were provided, patient indicated understanding. All questions were answered prior to departure. Discharged in good condition. Last Recorded V/S: Last Vital Signs Temp 35.7 C L 12/10/19 12:24 Pulse 56 L 12/10/19 12:24 Resp 16 12/10/19 12:24 BP 159/49 H 12/10/19 12:24 Pulse Ox 94 L 12/10/19 12:24 - Orders/Labs/Meds Orders: Active Orders 24 hr Category Date Time Status Pulse Oximetry [RC] ASDIRECTED Care 12/10/19 12:10 Active NPO Now [Nothing per Oral Now Diet] [DIET] Diet 12/10/19 Dinner Active Sodium Chloride 0.9% [Saline Flush] Med 12/10/19 12:10 Active 10 ml FLUSH ASDIRECTED PRN Sodium Chloride 0.9% [Saline Flush] Med 12/10/19 12:10 Active 2.5 ml FLUSH ASDIRECTED PRN Saline Lock Insert [OM.PC] Stat Oth 12/10/19 12:11 Ordered Medication Orders Sodium Chloride (Saline Flush) 10 ml FLUSH ASDIRECTED PRN PRN Reason: Keep Vein Open Sodium Chloride (Saline Flush) 2.5 ml FLUSH ASDIRECTED PRN PRN Reason: Keep Vein Open Labs: Laboratory Tests 12/10/19 12/10/19 12/10/19 Range/Units 13:20 13:20 13:20 WBC 13.60 H (4.0-11.0) K/uL RBC 4.74 (4.30-5.90) M/uL Hgb 12.0 (12.0-16.0) g/dL Hct 38.5 (36.0-46.0) % MCV 81.2 (80.0-98.0) fL MCH 25.3 L (27.0-32.0) pg MCHC 31.2 (31.0-37.0) g/dL RDW Std Deviation 52.5 (28.0-62.0) fl RDW Coeff of Elle 18 H (11.0-15.0) % Plt Count 319 (150-400) K/uL MPV 10.30 (7.40-12.00) fL Neut % (Auto) 85.7 H (48.0-80.0) % Lymph % (Auto) 8.7 L (16.0-40.0) % [place] % (Auto) 5.0 (0.0-15.0) % Eos % (Auto) 0.3 (0.0-7.0) % Baso % (Auto) 0.3 (0.0-1.5) % Neut # (Auto) 11.7 H (1.4-5.7) K/uL Lymph # (Auto) 1.2 (0.6-2.4) K/uL [place] # (Auto) 0.7 (0.0-0.8) K/uL Eos # (Auto) 0.0 (0.0-0.7) K/uL Baso # (Auto) 0.0 (0.0-0.1) K/uL Nucleated RBC % 0.0 /100WBC Nucleated RBCs # 0 K/uL INR 1.08 Sodium (136-145) mmol/L Potassium (3.5-5.1) mmol/L Chloride (98-107) mmol/L Carbon Dioxide (21.0-32.0) mmol/L BUN (7.0-18.0) mg/dL Creatinine (0.6-1.0) mg/dL Est Cr Clr Drug Dosing mL/min Estimated GFR (MDRD) ml/min Glucose (74-106) mg/dL Calcium (8.5-10.1) mg/dL Total Bilirubin (0.2-1.0) mg/dL AST (15-37) IU/L ALT (14-63) IU/L Alkaline Phosphatase (46-116) U/L Total Protein (6.4-8.2) g/dL Albumin (3.4-5.0) g/dL Globulin (2.6-4.0) g/dL Albumin/Globulin Ratio (0.9-1.6) Blood Type A NEGATIVE 12/10/19 Range/Units 13:20 WBC (4.0-11.0) K/uL RBC (4.30-5.90) M/uL Hgb (12.0-16.0) g/dL Hct (36.0-46.0) % MCV (80.0-98.0) fL MCH (27.0-32.0) pg MCHC (31.0-37.0) g/dL RDW Std Deviation (28.0-62.0) fl RDW Coeff of Elle (11.0-15.0) % Plt Count (150-400) K/uL MPV (7.40-12.00) fL Neut % (Auto) (48.0-80.0) % Lymph % (Auto) (16.0-40.0) % [place] % (Auto) (0.0-15.0) % Eos % (Auto) (0.0-7.0) % Baso % (Auto) (0.0-1.5) % Neut # (Auto) (1.4-5.7) K/uL Lymph # (Auto) (0.6-2.4) K/uL [place] # (Auto) (0.0-0.8) K/uL Eos # (Auto) (0.0-0.7) K/uL Baso # (Auto) (0.0-0.1) K/uL Nucleated RBC % /100WBC Nucleated RBCs # K/uL INR Sodium 138 (136-145) mmol/L Potassium 4.3 (3.5-5.1) mmol/L Chloride 104 (98-107) mmol/L Carbon Dioxide 26.5 (21.0-32.0) mmol/L BUN 15 (7.0-18.0) mg/dL Creatinine 1.1 H (0.6-1.0) mg/dL Est Cr Clr Drug Dosing 29.04 mL/min Estimated GFR (MDRD) 47.1 ml/min Glucose 108 H (74-106) mg/dL Calcium 8.9 (8.5-10.1) mg/dL Total Bilirubin 0.2 (0.2-1.0) mg/dL AST 18 (15-37) IU/L ALT 18 (14-63) IU/L Alkaline Phosphatase 49 (46-116) U/L Total Protein 7.2 (6.4-8.2) g/dL Albumin 3.4 (3.4-5.0) g/dL Globulin 3.8 (2.6-4.0) g/dL Albumin/Globulin Ratio 0.9 (0.9-1.6) Blood Type Meds: Medications Generic Name Dose Route Start Last Admin Trade Name Freq PRN Reason Stop Dose Admin Sodium Chloride 10 ml 12/10/19 12:10 Saline Flush FLUSH ASDIRECTED PRN Keep Vein Open Sodium Chloride 2.5 ml 12/10/19 12:10 Saline Flush FLUSH ASDIRECTED PRN Keep Vein Open Discontinued Medications Generic Name Dose Route Start Last Admin Trade Name Freq PRN Reason Stop Dose Admin Diltiazem HCl 240 mg 12/10/19 14:17 12/10/19 14:40 Cardizem Cd PO 12/10/19 14:18 Not Given ONETIME ONE Iopamidol 100 ml 12/10/19 14:47 12/10/19 14:48 Isovue Multipack-370 (76%) IVPUSH 12/10/19 14:48 100 ml ONETIME ONE Administration Departure - Departure Time of Disposition: 15:47 Disposition: Home, Self-Care 01 Condition: Good Clinical Impression: BRBPR (bright red blood per rectum), Sigmoid diverticulitis - Discharge Information *PRESCRIPTION DRUG MONITORING PROGRAM REVIEWED*: Not Applicable *COPY OF PRESCRIPTION DRUG MONITORING REPORT IN PATIENT FLETCHER: Not Applicable Prescriptions: Acetaminophen [Acetaminophen Extra Strength] 500 - 1,000 mg PO Q6H PRN #30 tablet PRN Reason: Pain (Mild 1-3) Amoxicillin/Potassium Clav [Augmentin 875-125 Tablet] 1 each PO BID 10 Days #20 tablet Instructions: Diverticulitis, [id number], Rectal Bleeding, [id number] Referrals: Phu Mullins MD [Primary Care Provider] - 3 Days (For follow-up of rectal bleeding and pain due to diverticulitis.) Forms: ED Department Discharge Additional Instructions: Thank you for choosing the [facility] emergency department in [place] for your medical needs today. It was a pleasure caring for you. You were seen in the emergency department for rectal bleeding and abdominal pain. Your work-up showed that you have diverticulitis, which you have had before. We are going to prescribe some antibiotics and Tylenol, which I think will help your symptoms. I would like for you to closely follow-up with your primary doctor in the next few days for reevaluation. If your bleeding increases, if your pain worsens, or if you develop a fever, you should come back to the emergency department immediately. Please return the emergency department immediately if your symptoms worsen or if you feel worse. The following information is given to patients seen in the emergency department who are being discharged. This information is to outline your options for follow-up care. We provide all patients seen in our emergency department with a follow-up referral. The need for follow-up, as well as the timing and circumstances, are variable depending upon the specifics of your emergency department visit. If you don't have a primary care physician on staff, we will provide you with a referral. We always advise you to contact your personal physician following an emergency department visit to inform them of the circumstance of the visit and for follow-up with them and/or the need for any referrals to a consulting specialist. The emergency department will also refer you to a specialist when appropriate. This referral assures that you have the opportunity for follow-up care with a specialist. All of these measure are taken in an effort to provide you with optimal care, which includes your follow-up. Under all circumstances we always encourage you to contact your private physician who remains a resource for coordinating your care. When calling for follow-up care, please make the office aware that this follow-up is from your recent emergency room visit. If for any reason you are refused follow-up, please contact the [facility] Emergency Department at and asked to speak to the emergency department charge nurse. If you do not have a primary care physician that is caring for you, you can contact these clinics below to set up an appointment to establish care: [facility] - Primary Care [address] [place] [address] [facility] [address] [place] [address] Sepsis Event Note (ED) - Focused Exam Vital Signs: Vital Signs Temp Pulse Resp BP Pulse Ox 12/10/19 12:24 35.7 C L 56 L 16 159/49 H 94 L - My Orders Last 24 Hours: My Active Orders 12/10/19 12:10 Pulse Oximetry [RC] ASDIRECTED Sodium Chloride 0.9% [Saline Flush] 10 ml FLUSH ASDIRECTED PRN Sodium Chloride 0.9% [Saline Flush] 2.5 ml FLUSH ASDIRECTED PRN 12/10/19 12:11 Saline Lock Insert [OM.PC] Stat 12/10/19 Dinner NPO Now [Nothing per Oral Now Diet] [DIET] - Assessment/Plan Last 24 Hours: My Active Orders 12/10/19 12:10 Pulse Oximetry [RC] ASDIRECTED Sodium Chloride 0.9% [Saline Flush] 10 ml FLUSH ASDIRECTED PRN Sodium Chloride 0.9% [Saline Flush] 2.5 ml FLUSH ASDIRECTED PRN 12/10/19 12:11 Saline Lock Insert [OM.PC] Stat 12/10/19 Dinner NPO Now [Nothing per Oral Now Diet] [DIET]
[2019-12-10 13:59] LABS: CARBON DIOXIDE,CO2 26.5 mmol/L (21.0-32.0); POTASSIUM,K 4.3 mmol/L (3.5-5.1)
[2019-12-10] MEDS ORDERED: Diltiazem 120 MG Cap.CD PO ONE (14:17)
[2019-12-10] MEDS ORDERED: Iopamidol 755 MG/ML 200 ML Multipack Bottle IVPUSH ONE (14:47)
--- NOTE | 2019-12-10 15:33 | CT ---
INDICATION: Bilateral lower abdominal pain. TECHNIQUE: CT abdomen and pelvis acquired with 100 cc Isovue 370 IV contrast. Coronal and sagittal reconstructions. COMPARISON: CT abdomen and pelvis 02/03/2018. No report is available. FINDINGS: Stable small left hepatic cyst. Hepatic and portal veins are patent. Slight increase in size of a round peripherally calcified structure in the gallbladder neck measuring 1.2 cm (series 201, image 52). This could represent a gallstone or partially calcified gallbladder polyp. This does not appear obstructing. No gallbladder wall thickening or pericholecystic fluid. No biliary dilation. The spleen and adrenal glands are negative. Fatty infiltration of the pancreas. There is a stable 3.3 x 2.5 cm cystic lesion in the pancreatic body (series 201, image 44). Increased size of a cystic lesion in the pancreatic tail (series 201, image 39), measuring 3.4 x 3.2 cm today compared to 2.2 x 2.1 cm previously. There is also a new 1.5 cm cystic lesion in the pancreatic tail (image 34). No dilation of the main pancreatic duct. Symmetric enhancement kidneys. Stable bilateral renal cysts. No hydronephrosis. No obstructing urinary calculi. The bladder is unremarkable. Hysterectomy. The adnexa are normal in appearance. No bowel dilation. Colonic diverticulosis. There is mild wall thickening and mucosal hyper enhancement of the proximal sigmoid colon (series 201 image 118). There is no significant pericolonic fat stranding. No focal fluid collection. Findings could represent mild/early acute diverticulitis or a focal nonspecific colitis. No pneumatosis. There are postoperative changes of the right colon, possibly a right hemicolectomy. The appendix is not identified. No intraperitoneal free air or fluid. Small hiatal hernia. Small midline ventral hernia containing fat and a nonobstructed loop of small bowel. Aortoiliac vascular calcifications. No lymphadenopathy. Degenerative changes of the spine. Bibasilar atelectasis. IMPRESSION: 1. There is mild wall thickening and mucosal hyperenhancement of the proximal sigmoid colon without significant pericolonic fat stranding. Findings could represent mild/early acute diverticulitis versus focal nonspecific colitis. No evidence of perforation or abscess. No bowel obstruction. 2. Increase in size of a cystic lesion in the pancreatic tail, now measuring 3.4 x 3.2 cm. New 1.5 cm cystic lesion in the pancreatic tail. Stable 3.3 x 2.5 cm cystic lesion in the pancreatic body. These may represent side branch intraductal papillary mucinous neoplasms or other pancreatic cystic neoplasm. Recommend further evaluation with nonemergent MRI/MRCP. 3. Slight increase in size of a round peripherally calcified structure in the gallbladder neck. This could represent a gallstone or gallbladder polyp. No evidence of cholecystitis. Consider further evaluation with nonemergent right upper quadrant ultrasound. Please note that all CT scans at this facility use dose modulation, iterative reconstruction, and/or weight-based dosing when appropriate to reduce radiation dose to as low as reasonably achievable. Dictated by Violeta Johnson MD @ Dec 10 2019 3:12PM Signed by Dr. Violeta Johnson @ Dec 10 2019 3:31PM
[2019-12-10 19:18] VITALS: BP 150/69; PULSE 88
== END 2019-12-10 16:05 | disposition home or self-care (01) ==
LOC: MW.ED 12:03
DX: K57.33 Diverticulitis of large intestine without perforation or abscess with bleeding (principal); I10 Essential (primary) hypertension; I48.91 Unspecified atrial fibrillation; Z88.5 Allergy status to narcotic agent; Z79.82 Long term (current) use of aspirin; Z79.899 Other long term (current) drug therapy; Z86.73 Personal history of transient ischemic attack (TIA), and cerebral infarction without residual deficits; Z90.710 Acquired absence of both cervix and uterus
CPT/HCPCS: 36415; 74177; 80053; 85025; 85610; 86900; 86901; 99284; Q9967; 99283

== ENCOUNTER 2021-09-14 11:49 | Emergency (ER) | payer MEDICARE, BC ==
[2021-09-14] MEDS ORDERED: Fluorescein 1 MG Ophth Strip EYERT ONE (12:06)
[2021-09-14] MEDS ORDERED: Tetracaine HCl/PF 0.5% 4 ML Bottle EYERT ONE (12:07)
[2021-09-14 12:39] VITALS: PULSE 57
[2021-09-14 13:21] VITALS: BP 176/87
== END 2021-09-14 13:10 | disposition home or self-care (01) ==
LOC: MW.ED 11:49
DX: H11.31 Conjunctival hemorrhage, right eye (principal); I48.91 Unspecified atrial fibrillation; I10 Essential (primary) hypertension; D68.9 Coagulation defect, unspecified; Z86.73 Personal history of transient ischemic attack (TIA), and cerebral infarction without residual deficits; Z88.5 Allergy status to narcotic agent; Z79.82 Long term (current) use of aspirin; Z79.899 Other long term (current) drug therapy
CPT/HCPCS: 99283

== ENCOUNTER 2022-04-16 14:02 | Emergency (ER) | payer MEDICARE, BC ==
[2022-04-16] MEDS ORDERED: Sulfamethoxazole/Trimethoprim 800-160 MG Tab PO ONE (15:27)
[2022-04-16] MEDS ORDERED: Acetaminophen/HYDROcodone 325-5 MG Tab PO ONE (15:27)
[2022-04-16 16:25] VITALS: BP 128/86; PULSE 78
== END 2022-04-16 16:23 | disposition home or self-care (01) ==
LOC: MW.ED 14:02
DX: L02.211 Cutaneous abscess of abdominal wall (principal); I48.91 Unspecified atrial fibrillation; I10 Essential (primary) hypertension; Z79.82 Long term (current) use of aspirin; Z79.899 Other long term (current) drug therapy
CPT/HCPCS: 99282; A9270

== ENCOUNTER 2022-04-17 10:52 | Emergency (ER) | payer MEDICARE, BC ==
[2022-04-17] MEDS ORDERED: Lidocaine 1% 5 ML VIAL INJECT ONE (11:07)
[2022-04-17] MEDS ORDERED: Acetaminophen/HYDROcodone 325-5 MG Tab PO ONE (11:47)
[2022-04-17 12:03] VITALS: BP 161/69; PULSE 108
== END 2022-04-17 12:03 | disposition home or self-care (01) ==
LOC: MW.ED 10:52
DX: L02.212 Cutaneous abscess of back [any part, except buttock and flank] (principal); I48.91 Unspecified atrial fibrillation; I10 Essential (primary) hypertension; Z86.73 Personal history of transient ischemic attack (TIA), and cerebral infarction without residual deficits; Z79.01 Long term (current) use of anticoagulants; Z79.899 Other long term (current) drug therapy
CPT/HCPCS: 10060; 87070; 87205; 99283-25